=== PATIENT | male | born 1935 ===

== ENCOUNTER 2018-07-04 09:56 | Inpatient (IN) | payer MEDICARE, OTHER | END 2018-07-07 16:20 | disposition home or self-care (01) | LOC: C.9I 07-05 02:56 → C.ER 09:56 → C.9E 12:00 → C.3T 15:05 → C.9E 15:45 ==

== ENCOUNTER 2018-08-31 14:48 | Inpatient (IN) | payer MEDICARE, OTHER ==
[2018-08-31 14:48] VITALS: BMI 29.8
[2018-08-31 16:55] LABS: EOS % 3.3 % (0.0-4.0); LYMPH # 0.2 K/uL (1.0-4.3); LYMPH % 69.6 % (20.0-40.0); MEAN CELL VOLUME 96.4 fL (80.0-94.0); MEAN CORPUSCULAR HEMOGLOBIN 31.5 pg (27.0-31.0); MEAN CORPUSCULAR HGB CONC 32.7 g/dL (33.0-37.0); MEAN PLATELET VOLUME 9.4 fL (7.2-11.7); MONO % 5.4 % (0.0-10.0); NEUT # 0.1 K/uL (1.8-7.0); NEUT % 21.7 % (50.0-75.0); NRBC % 3.5 % (0.0-2.0); RBC 1.77 Mil/uL (4.40-5.90)
--- NOTE | 2018-08-31 16:56 | RAD ---
Date of service: 08/31/2018 PROCEDURE: CHEST RADIOGRAPH, 1 VIEW HISTORY: SOB COMPARISON: Is made with 07/05/2018 FINDINGS: LUNGS: No evidence of new infiltrate or consolidation in the lungs. Prominent reticular opacities at the lower lobes are again noted. PLEURA: No pneumothorax or pleural fluid seen. CARDIOVASCULAR: No aortic atherosclerotic calcification present. Normal. OSSEOUS STRUCTURES: No significant abnormalities. VISUALIZED UPPER ABDOMEN: Normal. OTHER FINDINGS: Right-sided Infusaport is again seen in place. IMPRESSION: No significant interval changes.
[2018-08-31 16:57] LABS: INR 1.2; PROTHROMBIN TIME 13.2 SECONDS (9.7-12.2)
[2018-08-31 16:58] LABS: ALB/GLOB RATIO 1.1 (1.0-2.1); ALBUMIN 3.4 g/dL (3.5-5.0); AST/SGOT 23 U/L (17-59); BLOOD UREA NITROGEN 24 mg/dL (9-20); CALCIUM 8.7 mg/dl (8.6-10.4); GFR NON-AFRICAN AMERICAN 58
[2018-08-31 16:59] LABS: ALT/SGPT < 6 U/L (21-72)
[2018-08-31 17:00] LABS: WHITE BLOOD COUNT 0.3 K/uL (4.8-10.8)
[2018-08-31 17:01] LABS: HEMOGLOBIN 5.6 g/dL (12.0-18.0)
--- NOTE | 2018-08-31 17:37 | C.PDOC ---
History Of Present Illness 82-year-old male with past medical history of HTN, DM2, CAD, and myelodysplastic pancytopenia(dx 2.5yrs ago) who presents to the ED at the request of Dr. Moreau due to Hb6. Pt had transfusion in past. At present time, pt denies any active physical complaints. Patient denies chest pain, SOB, palpitations, dizziness, headaches, n/v, diarrhea, leg swelling, abdominal pain, dysuria. PMD: Dr. Moreau, Heme/Onc: Dr. Bridges, Cardio: Dr. Simmons PMH: HTN, DM2, CAD, myelodysplastic pancytopenia PSurgH: stents x2 2012, appendectomy Medications: Jardiance 10 mg qd, amlodipine 5 mg qd, isosorbide mononitrate ER 60 mg qd, losartan potassium 100 mg qd, atorvastatin 20 mg qhs, oxybutinin ER 15 mg qhs, finasteride 5 mg qhs, Humulin 70/30 28 unit & 24 unit, temazepam 15 mg qhs Allergies: NKDA Time Seen by Provider: 08/31/18 15:32 Chief Complaint (Nursing): Abnormal Labs History Per: Patient Past Medical History Reviewed: Historical Data, Nursing Documentation, Vital Signs Vital Signs: Last Vital Signs Temp 98 F 08/31/18 14:57 Pulse 84 08/31/18 14:57 Resp 20 08/31/18 14:57 BP 122/59 L 08/31/18 14:57 Pulse Ox 99 08/31/18 14:57 - Medical History PMH: Anemia, CAD, Diabetes, HTN Denies: Chronic Kidney Disease Surgical History: Appendectomy (1989), Coronary Stent (2010) - [facility] Procedures INSERT VAD RESERVOIR IN CHEST SUBCU/FASCIA, PERC (07/04/18) INSERTION OF INFUSION DEV INTO SUP VENA CAVA, PERC APPROACH (07/04/18) LEFT HEART CARDIAC CATH (04/16/13) LT HEART ANGIOCARDIOGRAM (04/16/13) TRANSFUSE NONAUT PLATELETS IN PERIPH VEIN, PERC (07/04/18) Family History: States: No Known Family Hx - Social History Hx Tobacco Use: No Hx Alcohol Use: No Hx Substance Use: No - Immunization History Hx Tetanus Toxoid Vaccination: No Hx Influenza Vaccination: Yes (2018) Hx Pneumococcal Vaccination: Yes (3 years ago) Review Of Systems Except As Marked, All Systems Reviewed And Found Negative. Constitutional: Negative for: Fever Cardiovascular: Negative for: Chest Pain, Palpitations, Edema, Light Headedness Respiratory: Negative for: Cough, Shortness of Breath, Wheezing Gastrointestinal: Negative for: Nausea, Vomiting, Abdominal Pain, Diarrhea, Melena, Hematochezia, Hematemesis Genitourinary: Negative for: Hematuria Musculoskeletal: Negative for: Neck Pain, Back Pain Skin: Negative for: Rash Neurological: Negative for: Weakness, Numbness, Altered Mental Status Physical Exam - Physical Exam Appears: Well, Non-toxic, No Acute Distress Skin: Normal Color, Warm, Dry, No Rash Head: Normacephalic Eye(s): bilateral: PERRL Neck: Trachea Midline, Supple Cardiovascular: Rhythm Regular, No Murmur, No JVD Respiratory: No Decreased Breath Sounds, No Accessory Muscle Use, No Stridor, No Wheezing Gastrointestinal/Abdominal: Soft, No Tenderness, No Distention, No Guarding Back: No CVA Tenderness Extremity: Normal ROM, No Pedal Edema, No Deformity Neurological/Psych: Oriented x3, Normal Speech ED Course And Treatment - Laboratory Results Result Diagrams: 08/31/18 16:43 08/31/18 16:43 Lab Results: PT 13.2 SECONDS (9.7-12.2) H 08/31/18 16:43 INR 1.2 08/31/18 16:43 APTT 32 SECONDS (21-34) 08/31/18 16:43 Total Bilirubin 0.7 mg/dL (0.2-1.3) 08/31/18 16:43 AST 23 U/L (17-59) 08/31/18 16:43 ALT < 6 U/L (21-72) L D 08/31/18 16:43 Alkaline Phosphatase 55 U/L (38-126) 08/31/18 16:43 Total Protein 6.6 g/dL (6.3-8.3) 08/31/18 16:43 Albumin 3.4 g/dL (3.5-5.0) L 08/31/18 16:43 Globulin 3.1 gm/dL (2.2-3.9) 08/31/18 16:43 Albumin/Globulin Ratio 1.1 (1.0-2.1) 08/31/18 16:43 Lab Interpretation: Abnormal ECG: Interpreted By Me, Viewed By Me ECG Interpretation: Abnormal Interpretation Of ECG: 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 Compare to old one from 07/04/18: SInus josep@59/min, RBBB O2 Sat by Pulse Oximetry: 99 Pulse Ox Interpretation: Normal - Other Rad CXR X-Ray: Read By Radiologist Interpretation: 08/31/2018. PROCEDURE: CHEST RADIOGRAPH, 1 VIEW. HISTORY: SOB. COMPARISON: Is made with 07/05/2018. FINDINGS: LUNGS: No evidence of new infiltrate or consolidation in the lungs. Prominent reticular opacities at the lower lobes are again noted. PLEURA: No pneumothorax or pleural fluid seen. CARDIOVASCULAR: No aortic atherosclerotic calcification present. Normal. OSSEOUS STRUCTURES: No significant abnormalities. VISUALIZED UPPER ABDOMEN: Normal. OTHER FINDINGS: Right-sided Infusaport is again seen in place. IMPRESSION: No significant interval changes. Progress Note: case discussed with , EKG review. Admission to tele recommend. Request transfusion with PRBCs now Disposition - Disposition Disposition: HOSPITALIZED Disposition Time: 17:56 Condition: STABLE - Clinical Impression Clinical Impression: Pancytopenia, Abnormal electrocardiogram
[2018-08-31] MEDS ORDERED: Dextrose 50% SYRINGE Inj (50 ml) IV PRN (20:21)
[2018-08-31] MEDS ORDERED: Glucagon Recombinant 1 mg Inj IM PRN (20:21)
--- NOTE | 2018-08-31 20:30 | CP.PCM.HP ---
History of Present Illness - History of Present Illness History of Present Illness: CC: anemia Patient is an 82-year-old male with past medical history of HTN, DM2, CAD, and myelodysplastic syndrome (dx 2.5yrs ago) with associated pancytopenia who presents to the ED as requested by PMD Dr. Moreau for anemia with reported hgb of 6. Patient reports he is being treated by Dr. Bridges for myelodysplastic syndrome. Patient is currently asymptomatic. Patient denies chest pain, SOB, palpitations, dizziness, headaches, n/v, diarrhea, leg swelling, abdominal pain, dysuria. PMD: Dr. Moreau, Heme/Onc: Dr. Bridges, Cardio: Dr. Simmons PMHx: HTN, DM2, CAD, myelodysplastic syndrome PSHx: stents x2 2012, appendectomy Meds: Jardiance 10 mg qd, amlodipine 5 mg qd, isosorbide mononitrate ER 60 mg qd, losartan potassium 100 mg qd, atorvastatin 20 mg qhs, oxybutinin ER 15 mg qhs, finasteride 5 mg qhs, Humulin 70/30 28 unit & 24 units, temazepam 15 mg qhs Allergies: NKDA FamHx: uterine ca SocHx: denies alcohol/drug use, former smoker quit 27 years ago Present on Admission - Present on Admission Any Indicators Present on Admission: No Review of Systems - Constitutional Constitutional: absent: Fatigue, Fever, Lethargy - EENT Eyes: absent: Blurred Vision - Cardiovascular Cardiovascular: absent: Chest Pain, Dyspnea, Lightheadedness, Palpitations - Respiratory Respiratory: absent: Cough - Gastrointestinal Gastrointestinal: absent: Diarrhea, Nausea - Genitourinary Genitourinary: absent: Difficulty Urinating - Neurological Neurological: absent: Dizziness, Headaches, Syncope, Weakness Past Patient History - Past Medical History & Family History Past Medical History?: Yes - Past Social History Smoking Status: Former Smoker - CARDIAC Hx Hypertension: Yes - PULMONARY Hx Respiratory Disorders: No - NEUROLOGICAL Hx Neurological Disorder: No - HEENT Hx HEENT Problems: No - RENAL Hx Chronic Kidney Disease: No - ENDOCRINE/METABOLIC Hx Endocrine Disorders: Yes Hx Diabetes Mellitus Type 1: Yes - HEMATOLOGICAL/ONCOLOGICAL Hx Anemia: Yes - INTEGUMENTARY Hx Dermatological Problems: No - MUSCULOSKELETAL/RHEUMATOLOGICAL Hx Falls: No - GASTROINTESTINAL Hx Gastrointestinal Disorders: No - GENITOURINARY/GYNECOLOGICAL Hx Genitourinary Disorders: No - PSYCHIATRIC Hx Substance Use: No - SURGICAL HISTORY Hx Appendectomy: Yes (1989) Hx Coronary Stent: Yes (2010) - ANESTHESIA Hx Anesthesia: Yes Hx Anesthesia Reactions: No Hx Malignant Hyperthermia: No Meds Allergies/Adverse Reactions: Allergies Allergy/AdvReac Type Severity Reaction Status Date / Time No Known Allergies Allergy Verified 08/31/18 15:00 Physical Exam - Constitutional Appears: Non-toxic, No Acute Distress - Head Exam Head Exam: ATRAUMATIC, NORMAL INSPECTION, NORMOCEPHALIC - Eye Exam Eye Exam: EOMI, Normal appearance - ENT Exam ENT Exam: Mucous Membranes Moist, Normal Exam - Neck Exam Neck exam: Negative for: Normal Inspection Additional comments: right chest port - Respiratory Exam Respiratory Exam: Clear to Auscultation Bilateral, NORMAL BREATHING PATTERN. absent: Respiratory Distress - Cardiovascular Exam Cardiovascular Exam: REGULAR RHYTHM. absent: Tachycardia - GI/Abdominal Exam GI & Abdominal Exam: Soft. absent: Distended, Tenderness - Extremities Exam Extremities exam: Positive for: normal inspection. Negative for: calf tenderness, pedal edema - Neurological Exam Neurological exam: Alert, Oriented x3 - Psychiatric Exam Psychiatric exam: Normal Affect, Normal Mood - Skin Skin Exam: Dry, Intact, Pallor, Warm Additional comments: dark fingernail discoloration Results - Vital Signs Recent Vital Signs: Last Vital Signs Temp 98.0 F 08/31/18 20:03 Pulse 76 08/31/18 20:03 Resp 20 08/31/18 18:45 BP 125/49 L 08/31/18 20:03 Pulse Ox 95 08/31/18 19:48 - Labs Result Diagrams: 08/31/18 16:43 08/31/18 16:43 Labs: Laboratory Results - last 24 hr 08/31/18 08/31/18 08/31/18 16:43 16:43 16:43 WBC 0.3 L* RBC 1.77 L Hgb 5.6 L* D Hct 17.1 L MCV 96.4 H D MCH 31.5 H MCHC 32.7 L RDW 24.0 H Plt Count 20 L* D MPV 9.4 Neut % (Auto) 21.7 L Lymph % (Auto) 69.6 H Ellis % (Auto) 5.4 Eos % (Auto) 3.3 Baso % (Auto) 0.0 Neut # (Auto) 0.1 L Lymph # (Auto) 0.2 L Ellis # (Auto) 0.0 Eos # (Auto) 0.0 Baso # (Auto) 0.0 PT 13.2 H INR 1.2 APTT 32 Sodium 135 Potassium 4.4 Chloride 101 Carbon Dioxide 25 Anion Gap 13 BUN 24 H Creatinine 1.2 Est GFR ( Amer) > 60 Est GFR (Non-Af Amer) 58 Random Glucose 233 H D Calcium 8.7 Total Bilirubin 0.7 AST 23 ALT < 6 L D Alkaline Phosphatase 55 CK-MB (Mass) 0.30 Troponin I < 0.0120 Total Protein 6.6 Albumin 3.4 L Globulin 3.1 Albumin/Globulin Ratio 1.1 Blood Type Antibody Screen 08/31/18 16:43 WBC RBC Hgb Hct MCV MCH MCHC RDW Plt Count MPV Neut % (Auto) Lymph % (Auto) Ellis % (Auto) Eos % (Auto) Baso % (Auto) Neut # (Auto) Lymph # (Auto) Ellis # (Auto) Eos # (Auto) Baso # (Auto) PT INR APTT Sodium Potassium Chloride Carbon Dioxide Anion Gap BUN Creatinine Est GFR ( Amer) Est GFR (Non-Af Amer) Random Glucose Calcium Total Bilirubin AST ALT Alkaline Phosphatase CK-MB (Mass) Troponin I Total Protein Albumin Globulin Albumin/Globulin Ratio Blood Type AB POSITIVE Antibody Screen Negative Assessment & Plan (1) Pancytopenia Assessment and Plan: pancytopenia 2/2 myelodysplastic syndrome hx of transfusions Hgb 5.6 on admission transfuse 3U PRBC lasix 20mg ivp x1 s/p transfusions neutropenic precautions (WBC 0.3) contraindication for pharm anticoagulation f/u am labs Pt follows w/ Dr. Bridges outpatient Status: Acute (2) HTN (hypertension) Assessment and Plan: continue home meds, norvasc 5mg, cozaar 100mg Status: Chronic (3) DM2 (diabetes mellitus, type 2) Assessment and Plan: hold home Jardiance continue home insulin 70/30, 24 and 28 accuchecks ACHS hypoglycemia protocol Status: Chronic (4) CAD (coronary artery disease) Assessment and Plan: Stent 2010 continue statin, replace lipitor 20 with crestor 10mg po hs ASA contraindicated 2/2 pancytopenia Status: Chronic (5) Urinary retention Assessment and Plan: continue home meds, oxybutinin, proscar Status: Chronic - Assessment and Plan (Free Text) Assessment: Ppx: VTE: pharm AC contraindicated, SCDs GI: not indicated Discussed with Dr. Lizzeth Carlin, PGY-1
[2018-08-31] MEDS ORDERED: Home Med 1 UNIT (Atorvastatin [Lipitor] 20 MG) PO SCH (22:00)
[2018-08-31 22:48] VITALS: RESP 20
[2018-09-01] MEDS ORDERED: (Novolin 70/30) NPH/Regular 70/30 Units/ml 10 ml vial SC SCH ×2 (07:30→17:00)
[2018-09-01] MEDS ORDERED: Oxybutynin XL 15 mg Tab PO SCH (10:00)
[2018-09-01] MEDS ORDERED: Home Med 1 UNIT (Empagliflozin [Jardiance] 10 MG) PO SCH (10:00)
[2018-09-01 11:44] LABS: HEMOGLOBIN 9.2 g/dL (12.0-18.0)
[2018-09-01 11:53] LABS: MEAN CELL VOLUME 94.7 fL (80.0-94.0); MEAN CORPUSCULAR HEMOGLOBIN 31.5 pg (27.0-31.0); MEAN CORPUSCULAR HGB CONC 33.2 g/dL (33.0-37.0); MEAN PLATELET VOLUME 8.4 fL (7.2-11.7); RBC 2.92 Mil/uL (4.40-5.90); RED CELL DISTRIBUTION WIDTH 19.9 % (11.5-14.5)
[2018-09-01 11:58] LABS: WHITE BLOOD COUNT 0.4 K/uL (4.8-10.8)
[2018-09-01 12:05] LABS: ALB/GLOB RATIO 1.1 (1.0-2.1); ALBUMIN 3.7 g/dL (3.5-5.0); ALT/SGPT 11 U/L (21-72); AST/SGOT 25 U/L (17-59); BLOOD UREA NITROGEN 24 mg/dL (9-20); GFR NON-AFRICAN AMERICAN > 60
--- NOTE | 2018-09-01 12:20 | CP.PCM.DIS ---
Provider - Provider Date of Admission: 08/31/18 17:56 Attending physician: Oniel Lora Jr, MD Time Spent in preparation of Discharge (in minutes): 55 Hospital Course - Lab Results Lab Results: Most Recent Lab Values WBC 0.4 K/uL (4.8-10.8) L* 09/01/18 11:30 RBC 2.92 Mil/uL (4.40-5.90) L 09/01/18 11:30 Hgb 9.2 g/dL (12.0-18.0) L D 09/01/18 11:30 Hct 27.6 % (35.0-51.0) L 09/01/18 11:30 MCV 94.7 fL (80.0-94.0) H 09/01/18 11:30 MCH 31.5 pg (27.0-31.0) H 09/01/18 11:30 MCHC 33.2 g/dL (33.0-37.0) 09/01/18 11:30 RDW 19.9 % (11.5-14.5) H 09/01/18 11:30 Plt Count 14 K/uL (130-400) L* D 09/01/18 11:30 MPV 8.4 fL (7.2-11.7) 09/01/18 11:30 Neut % (Auto) 21.7 % (50.0-75.0) L 08/31/18 16:43 Lymph % (Auto) 69.6 % (20.0-40.0) H 08/31/18 16:43 [place] % (Auto) 5.4 % (0.0-10.0) 08/31/18 16:43 Eos % (Auto) 3.3 % (0.0-4.0) 08/31/18 16:43 Baso % (Auto) 0.0 % (0.0-2.0) 08/31/18 16:43 Neut # (Auto) 0.1 K/uL (1.8-7.0) L 08/31/18 16:43 Lymph # (Auto) 0.2 K/uL (1.0-4.3) L 08/31/18 16:43 [place] # (Auto) 0.0 K/uL (0.0-0.8) 08/31/18 16:43 Eos # (Auto) 0.0 K/uL (0.0-0.7) 08/31/18 16:43 Baso # (Auto) 0.0 K/uL (0.0-0.2) 08/31/18 16:43 PT 13.2 SECONDS (9.7-12.2) H 08/31/18 16:43 INR 1.2 08/31/18 16:43 APTT 32 SECONDS (21-34) 08/31/18 16:43 Sodium 134 mmol/L (132-148) 09/01/18 11:30 Potassium 4.6 mmol/L (3.6-5.2) 09/01/18 11:30 Chloride 100 mmol/L (98-107) 09/01/18 11:30 Carbon Dioxide 27 mmol/L (22-30) 09/01/18 11:30 Anion Gap 12 (10-20) 09/01/18 11:30 BUN 24 mg/dL (9-20) H 09/01/18 11:30 Creatinine 1.0 mg/dL (0.8-1.5) 09/01/18 11:30 Est GFR ( Amer) > 60 09/01/18 11:30 Est GFR (Non-Af Amer) > 60 09/01/18 11:30 POC Glucose (mg/dL) 159 mg/dL (65-110) H 08/31/18 22:01 Random Glucose 206 mg/dL (75-110) H 09/01/18 11:30 Calcium 9.0 mg/dl (8.6-10.4) 09/01/18 11:30 Total Bilirubin 1.1 mg/dL (0.2-1.3) 09/01/18 11:30 AST 25 U/L (17-59) 09/01/18 11:30 ALT 11 U/L (21-72) L D 09/01/18 11:30 Alkaline Phosphatase 51 U/L (38-126) 09/01/18 11:30 CK-MB (Mass) 0.30 ng/mL (0.0-3.38) 08/31/18 16:43 Troponin I < 0.0120 ng/mL (0.00-0.120) 08/31/18 16:43 Total Protein 7.0 g/dL (6.3-8.3) 09/01/18 11:30 Albumin 3.7 g/dL (3.5-5.0) 09/01/18 11:30 Globulin 3.3 gm/dL (2.2-3.9) 09/01/18 11:30 Albumin/Globulin Ratio 1.1 (1.0-2.1) 09/01/18 11:30 Blood Type AB POSITIVE 08/31/18 16:43 Antibody Screen Negative 08/31/18 16:43 - Hospital Course Hospital Course: Upon Admission: Patient is an 82-year-old male with past medical history of HTN, DM2, CAD, and myelodysplastic syndrome (dx 2.5yrs ago) with associated pancytopenia who presents to the ED as requested by PMD Dr. Lora for anemia with reported hgb of 6. Patient reports he is being treated by Dr. Bridges for myelodysplastic syndrome. Patient is currently asymptomatic. Patient denies chest pain, SOB, palpitations, dizziness, headaches, n/v, diarrhea, leg swelling, abdominal pain, dysuria. PMD: Dr. Lora, Heme/Onc: Dr. Bridges, Cardio: Dr. Simmons PMHx: HTN, DM2, CAD, myelodysplastic syndrome PSHx: stents x2 2012, appendectomy Meds: Jardiance 10 mg qd, amlodipine 5 mg qd, isosorbide mononitrate ER 60 mg qd, losartan potassium 100 mg qd, atorvastatin 20 mg qhs, oxybutinin ER 15 mg qhs, finasteride 5 mg qhs, Humulin 70/30 28 unit & 24 units, temazepam 15 mg qhs Allergies: NKDA FamHx: uterine ca SocHx: denies alcohol/drug use, former smoker quit 27 years ago Throughout Hospital Course: (1) Pancytopenia pancytopenia 2/2 myelodysplastic syndrome hx of transfusions Hgb 5.6 on admission transfuse 3U PRBC lasix 20mg ivp x1 s/p transfusions neutropenic precautions (WBC 0.3) contraindication for pharm anticoagulation Pt follows w/ Dr. Bridges outpatient (2) HTN (hypertension) continue home meds, norvasc 5mg, cozaar 100mg (3) DM2 (diabetes mellitus, type 2) hold home Jardiance continue home insulin 70/30, 24 and 28 accuchecks ACHS hypoglycemia protocol (4) CAD (coronary artery disease) Stent 2010 continue statin, replace lipitor 20 with crestor 10mg po hs ASA contraindicated 2/2 pancytopenia (5) Urinary retention continue home meds, oxybutinin, proscar Patient transfused 3 units PRBCs, patient is stable. He is to follow up with Dr. Lora and Dr. Bridges. Please review EMR for full record. Discharge Exam - Head Exam Head Exam: ATRAUMATIC, NORMAL INSPECTION, NORMOCEPHALIC - Eye Exam Eye Exam: EOMI, Normal appearance, PERRL Pupil Exam: NORMAL ACCOMODATION - ENT Exam ENT Exam: Mucous Membranes Moist - Respiratory Exam Respiratory Exam: Clear to PA & Lateral, NORMAL BREATHING PATTERN. absent: Decreased Breath Sounds, Rales, Rhonchi, Wheezes - Cardiovascular Exam Cardiovascular Exam: REGULAR RHYTHM, +S1, +S2 - GI/Abdominal Exam GI & Abdominal Exam: Normal Bowel Sounds, Soft. absent: Distended, Tenderness - Neurological Exam Neurological exam: Alert, CN II-XII Intact, Oriented x3 - Psychiatric Exam Psychiatric exam: Normal Affect, Normal Mood - Skin Skin Exam: Dry, Intact, Normal Color, Warm Discharge Plan - Follow Up Plan Condition: STABLE Disposition: HOME/ ROUTINE Instructions: Myelodysplastic Syndromes (MDS) Additional Instructions: Patient is to follow up with Dr. Lora within 1 week. Patient is to follow up with Dr. Redding as scheduled. Please continue your medications as prescribed. Please take care and be well. -- El paciente es el seguimiento con el Dr. lora dentro de 1 semana. El paciente es el seguimiento con el Dr. Redding segn lo programado. Por favor, contine con aishwarya medicamentos segn lo prescrito. Por favor, cudate y cudate. Referrals: Oniel Lora Jr., MD [Medical Doctor] -
[2018-09-01 13:16] LABS: EOS % 2.4 % (0.0-4.0); LYMPH % 81.6 % (20.0-40.0); MONO % 3.9 % (0.0-10.0); NEUT % 12.1 % (50.0-75.0); NRBC % 4.5 % (0.0-2.0)
[2018-09-01 13:17] LABS: LYMPH # 0.3 K/uL (1.0-4.3)
[2018-09-01 16:10] VITALS: BP 97/47; PULSE 75; TEMP 98.2; O2SAT 95
== END 2018-09-01 18:00 | disposition home or self-care (01) | DRG 810 ==
LOC: C.ER 14:48 → C.9E 17:56 → C.6T 18:51 → C.9E 19:51 → C.6T 21:29
PROVIDERS: ADMIT Internal Medicine; ATTEND Internal Medicine
PROC: 30233N1 Transfusion of Nonautologous Red Blood Cells into Peripheral Vein, Percutaneous Approach (ICD-10-PCS; principal; 2018-08-31)
DX: D61.818 Other pancytopenia (principal); D46.9 Myelodysplastic syndrome, unspecified; I10 Essential (primary) hypertension; E11.9 Type 2 diabetes mellitus without complications; I25.10 Atherosclerotic heart disease of native coronary artery without angina pectoris; R33.9 Retention of urine, unspecified; Z95.5 Presence of coronary angioplasty implant and graft; Z87.891 Personal history of nicotine dependence; Z79.4 Long term (current) use of insulin

== ENCOUNTER 2018-10-03 10:11 | Inpatient (IN) | payer MEDICARE, OTHER ==
[2018-10-03 10:11] VITALS: BMI 29.8
--- NOTE | 2018-10-03 10:58 | C.PDOC ---
History Of Present Illness 82-year-old male, whose past medical history includes MDS requiring recurrent transfusions, presents to the ED for evaluation of generalized weakness and skin pallor. Patient's friends came to visit him today and found he appeared very pale and had a low blood pressure. 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 He denies fever, chills, vomiting at this time. Time Seen by Provider: 10/03/18 10:28 Chief Complaint (Nursing): Abnormal Labs History Per: Patient, Other (friends) History/Exam Limitations: no limitations Onset/Duration Of Symptoms: Unknown Current Symptoms Are (Timing): Still Present Additional History Per: Patient Past Medical History Reviewed: Historical Data, Nursing Documentation, Vital Signs Vital Signs: Last Vital Signs Temp 98.5 F 10/03/18 10:28 Pulse 109 H 10/03/18 10:28 Resp 18 10/03/18 10:28 BP 102/61 10/03/18 10:28 Pulse Ox 99 10/03/18 10:28 - Medical History PMH: Anemia, CAD, Diabetes, HTN Denies: Chronic Kidney Disease Surgical History: Appendectomy (1989), Coronary Stent (2010) - [facility] Procedures INSERT VAD RESERVOIR IN CHEST SUBCU/FASCIA, PERC (07/04/18) INSERTION OF INFUSION DEV INTO SUP VENA CAVA, PERC APPROACH (07/04/18) LEFT HEART CARDIAC CATH (04/16/13) LT HEART ANGIOCARDIOGRAM (04/16/13) TRANSFUSE NONAUT PLATELETS IN PERIPH VEIN, PERC (07/04/18) TRANSFUSE NONAUT RED BLOOD CELLS IN PERIPH VEIN, PERC (08/31/18) Family History: States: Unknown Family Hx - Social History Hx Tobacco Use: No Hx Alcohol Use: No Hx Substance Use: No - Immunization History Hx Tetanus Toxoid Vaccination: No Hx Influenza Vaccination: Yes (2018) Hx Pneumococcal Vaccination: Yes (3 years ago) Review Of Systems Except As Marked, All Systems Reviewed And Found Negative. Constitutional: Negative for: Fever Gastrointestinal: Negative for: Vomiting Physical Exam - Physical Exam Additional Physical Exam Comments: Constitutional: No acute distress. Head: Normocephalic. Atraumatic. Eyes: PERRL. Pale conjunctiva. ENT: Moist mucous membranes. Neck: Supple. Cardiovascular: Regular rate. Radial pulse 2+ bilaterally. Chest: Port to right chest wall. No tenderness. Respiratory: Clear to auscultation bilaterally. GI: Soft. Nontender. Nondistended. Back: No CVA tenderness. Musculoskeletal: No tenderness or swelling of extremities. Skin: Pale. No Rash. Neurologic: Alert, no focal deficit. ED Course And Treatment - Laboratory Results Result Diagrams: 10/03/18 11:20 10/03/18 11:20 O2 Sat by Pulse Oximetry: 99 (on RA) Pulse Ox Interpretation: Normal Medical Decision Making Medical Decision Making: Progress: Bloodwork, CXR, and EKG ordered and reviewed. EKG: Normal Sinus Rhythm at rate 97bpm. Right bundle branch block. No ST elevations. CXR Impression: No active pulmonary disease. Disposition Discussed With DrVictoria: Oniel Moreau Jr. Doctor Will See Patient In The: Hospital - Disposition Disposition: HOSPITALIZED Disposition Time: 11:20 Condition: GUARDED - Clinical Impression Clinical Impression: Myelodysplasia (myelodysplastic syndrome), Symptomatic anemia - Scribe Statement The provider has reviewed the documentation as recorded by the Scribe (Mine Henriquez) Provider Attestation: All medical record entries made by the Scribe were at my direction and personally dictated by me. I have reviewed the chart and agree that the record accurately reflects my personal performance of the history, physical exam, medical decision making, and the department course for this patient. I have also personally directed, reviewed, and agree with the discharge instructions and dis position.
[2018-10-03 11:27] LABS: HEMOGLOBIN 6.6 g/dL (12.0-18.0); MEAN CORPUSCULAR HGB CONC 33.3 g/dL (33.0-37.0); MONO # 0.1 K/uL (0.0-0.8)
[2018-10-03 11:34] LABS: INR 1.4; PROTHROMBIN TIME 15.4 SECONDS (9.7-12.2)
[2018-10-03 11:35] LABS: LYMPH # 0.3 K/uL (1.0-4.3); LYMPH % 46.8 % (20.0-40.0); MEAN CELL VOLUME 95.4 fL (80.0-94.0); MEAN CORPUSCULAR HEMOGLOBIN 31.8 pg (27.0-31.0); MEAN PLATELET VOLUME 10.3 fL (7.2-11.7); MONO % 16.5 % (0.0-10.0); NEUT # 0.3 K/uL (1.8-7.0); NEUT % 35.7 % (50.0-75.0); NRBC % 3.1 % (0.0-2.0); RBC 2.09 Mil/uL (4.40-5.90); RED CELL DISTRIBUTION WIDTH 19.5 % (11.5-14.5)
[2018-10-03 11:49] LABS: ALB/GLOB RATIO 1.1 (1.0-2.1); ALBUMIN 3.9 g/dL (3.5-5.0); CALCIUM 9.2 mg/dl (8.6-10.4)
--- NOTE | 2018-10-03 11:56 | RAD ---
Date of service: 10/03/2018 HISTORY: Generalized weakness COMPARISON: 08/31/2018. FINDINGS: Right-sided Port-A-Cath terminates in the SVC. LUNGS: The lungs are well inflated and clear. PLEURA: No pleural effusions or pneumothorax. CARDIOVASCULAR: The heart is normal in size. No aortic atherosclerotic calcifications present. OSSEOUS STRUCTURES: Within normal limits for the patient's age. VISUALIZED UPPER ABDOMEN: Normal. OTHER FINDINGS: None. IMPRESSION: No active pulmonary disease.
--- NOTE | 2018-10-03 13:35 | CP.PCM.HP ---
History of Present Illness - History of Present Illness History of Present Illness: H&P for Dr. Moreau 82 M w/ PMHx of HTN, DM2, CAD, and myelodysplastic syndrome (dx 2.5yrs ago) present to ED per primary request. Patient states he was told his blood levels were low. Patient reports having 1x episode of feeling fatigue 1 day ago. Denied fevers, chills, just exhaustion. Today patient reports feeling normal, denies headache, vision changes, fevers, chills, nausea, vomiting, chest pain, sob, cough, abdominal pain, constipation, diarrhea. Patient denies recent illness/travel history. PMD: Lizzeth Heme/onc: Cyrus PMHx: HTN, DM2, CAD, myelodysplastic syndrome PSHx: stents x2 2012, appendectomy Meds: Jardiance 10 mg qd, amlodipine 5 mg qd, isosorbide mononitrate ER 60 mg qd, losartan potassium 100 mg qd, atorvastatin 20 mg qhs, oxybutinin ER 15 mg qhs, finasteride 5 mg qhs, Humulin 70/30 28 unit & 24 units, temazepam 15 mg qhs Allergies: NKDA FamHx: uterine ca SocHx: denies alcohol/drug use, former smoker quit 27 years ago Present on Admission - Present on Admission Any Indicators Present on Admission: No History of DVT/PE: No History of Uncontrolled Diabetes: No Urinary Catheter: No Decubitus Ulcer Present: No Review of Systems - Constitutional Constitutional: absent: Chills, Headache - EENT Eyes: absent: Blurred Vision, Change in Vision Nose/Mouth/Throat: absent: Nasal Congestion, Nose Pain - Cardiovascular Cardiovascular: absent: Chest Pain, Chest Pain at Rest - Respiratory Respiratory: absent: Dyspnea, Hemoptysis - Gastrointestinal Gastrointestinal: absent: Abdominal Pain - Genitourinary Genitourinary: absent: Change in Urinary Stream, Difficulty Urinating - Musculoskeletal Musculoskeletal: absent: Atrophy, Back Pain - Integumentary Integumentary: absent: Bleeding Lesions, Change in Pigmentation Additional comments: multiple places of ecchymosis - Neurological Neurological: absent: Abnormal Hearing, Abnormal Movements - Psychiatric Psychiatric: absent: Confusion, Depression - Hematologic/Lymphatic Hematologic: absent: Easy Bleeding, Easy Bruising Past Patient History - Past Medical History & Family History Past Medical History?: Yes - Past Social History Smoking Status: Former Smoker - CARDIAC Hx Hypertension: Yes - PULMONARY Hx Respiratory Disorders: No - NEUROLOGICAL Hx Neurological Disorder: No - HEENT Hx HEENT Problems: No - RENAL Hx Chronic Kidney Disease: No - ENDOCRINE/METABOLIC Hx Endocrine Disorders: Yes Hx Diabetes Mellitus Type 1: Yes - HEMATOLOGICAL/ONCOLOGICAL Hx Anemia: Yes - INTEGUMENTARY Hx Dermatological Problems: No - MUSCULOSKELETAL/RHEUMATOLOGICAL Hx Musculoskeletal Disorders: No Hx Falls: No - GASTROINTESTINAL Hx Gastrointestinal Disorders: No - GENITOURINARY/GYNECOLOGICAL Hx Genitourinary Disorders: No - PSYCHIATRIC Hx Substance Use: No - SURGICAL HISTORY Hx Appendectomy: Yes (1989) Hx Coronary Stent: Yes (2010) - ANESTHESIA Hx Anesthesia: Yes Hx Anesthesia Reactions: No Hx Malignant Hyperthermia: No Meds Allergies/Adverse Reactions: Allergies Allergy/AdvReac Type Severity Reaction Status Date / Time No Known Allergies Allergy Verified 08/31/18 15:00 Physical Exam - Constitutional Appears: Non-toxic, No Acute Distress - Eye Exam Eye Exam: absent: Normal appearance Additional comments: pale slcera - ENT Exam ENT Exam: Mucous Membranes Moist - Respiratory Exam Respiratory Exam: Clear to Auscultation Bilateral, NORMAL BREATHING PATTERN. absent: Rales, Rhonchi, Wheezes - Cardiovascular Exam Cardiovascular Exam: +S1, +S2. absent: Systolic Murmur - GI/Abdominal Exam GI & Abdominal Exam: Normal Bowel Sounds, Soft. absent: Distended, Firm, Guarding - Extremities Exam Extremities exam: Positive for: full ROM, normal inspection. Negative for: calf tenderness, pedal edema - Back Exam Back exam: absent: CVA tenderness (L), CVA tenderness (R) - Neurological Exam Neurological exam: Alert, Oriented x3 - Psychiatric Exam Psychiatric exam: Normal Affect, Normal Mood - Skin Skin Exam: Dry, Normal Color, Warm Additional comments: multiple areas of ecchymosis Results - Vital Signs Recent Vital Signs: Last Vital Signs Temp 100.3 F H 10/03/18 12:48 Pulse 98 H 10/03/18 12:43 Resp 18 10/03/18 10:28 BP 92/44 L 10/03/18 12:43 Pulse Ox 95 10/03/18 12:43 - Labs Result Diagrams: 10/03/18 11:20 10/03/18 11:20 Labs: Laboratory Results - last 24 hr 10/03/18 10/03/18 10/03/18 11:20 11:20 11:20 WBC 0.7 L* D RBC 2.09 L Hgb 6.6 L D Hct 19.9 L MCV 95.4 H MCH 31.8 H MCHC 33.3 RDW 19.5 H Plt Count 19 L* D MPV 10.3 Neut % (Auto) 35.7 L Lymph % (Auto) 46.8 H Ballard % (Auto) 16.5 H Eos % (Auto) 1.0 Baso % (Auto) 0.0 Neut # (Auto) 0.3 L Lymph # (Auto) 0.3 L Ballard # (Auto) 0.1 Eos # (Auto) 0.0 Baso # (Auto) 0.0 Differential Comment PT 15.4 H INR 1.4 APTT 32 Sodium 132 Potassium 4.5 Chloride 98 Carbon Dioxide 24 Anion Gap 16 BUN 42 H Creatinine 1.7 H Est GFR ( Amer) 47 Est GFR (Non-Af Amer) 39 Random Glucose 177 H Calcium 9.2 Phosphorus 4.2 Magnesium 1.9 Total Bilirubin 1.8 H AST 28 ALT 9 L Alkaline Phosphatase 49 Total Protein 7.6 Albumin 3.9 Globulin 3.7 Albumin/Globulin Ratio 1.1 Blood Type Antibody Screen 10/03/18 11:20 WBC RBC Hgb Hct MCV MCH MCHC RDW Plt Count MPV Neut % (Auto) Lymph % (Auto) Ballard % (Auto) Eos % (Auto) Baso % (Auto) Neut # (Auto) Lymph # (Auto) Ballard # (Auto) Eos # (Auto) Baso # (Auto) Differential Comment PT INR APTT Sodium Potassium Chloride Carbon Dioxide Anion Gap BUN Creatinine Est GFR ( Amer) Est GFR (Non-Af Amer) Random Glucose Calcium Phosphorus Magnesium Total Bilirubin AST ALT Alkaline Phosphatase Total Protein Albumin Globulin Albumin/Globulin Ratio Blood Type AB POSITIVE Antibody Screen Negative Assessment & Plan - Assessment and Plan (Free Text) Assessment: 82 male w/ PMhx of HTN, DM2, CAD, and myelodysplastic syndrome (dx 2.5yrs ago) presents w/ acute anemia Plan: Acute anemia Likely 2/2 due to myelodysplastic syndrome - hgb 6s, WBCs 0.7, plts 19 - baseline hgb 9s, wbcs 0.7s, plts 19s - transfuse 2 X PRBCs - Lasix 20 IVP in between - f/u stool occult - f/u heme/onc consutl Dr. Bridges Acute kidney injury - Cr 1.7 - likely due to dehydration - NS 80 mls/hr Leukopenia - F/u Blood cultures - F/u urine cultures - UA: WBCs 14, few willy - start Rocephin 1gm daily History of hypertension - BP currently 90s - hold home medications cozaar 100 mg daily, isosrbide mononitrate 60 mg daily, amlodipine 5 mg PO daily - NS 80 mls/hr History of hyperlipidemia - c/w home medication atorvastatin 10 mg daily History of diabetes - resume home medication jardiance 10 mg PO daily - insulin human 28 units SC daily - ISS - hypoglyemic protocol - accucheck achs History of BPH - c/w home medication proscar 5 mg daily, oxybutynin XL 15 mg PO daily Ppx - DVT: VTE contraindicated 2/2 to thrombopenia - GI: not indicated
[2018-10-03 14:30] LABS: WHITE BLOOD COUNT 0.7 K/uL (4.8-10.8)
[2018-10-03 14:59] LABS: SQUAMOUS EPITHIAL 1 /hpf (0-5); URINE AMORPHOUS SEDIMENT OCC /ul (<OCC); URINE BACTERIA FEW (<OCC); URINE BILIRUBIN NEGATIVE (NEGATIVE); URINE BLOOD 3+ (NEGATIVE); URINE CLARITY Hazy (Clear); URINE COLOR Yellow (YELLOW); URINE GLUCOSE (UA) 3+ mg/dL (Normal); URINE LEUKOCYTE ESTERASE TRACE Leu/uL (Negative); URINE PROTEIN NEGATIVE (NEGATIVE); URINE UROBILINOGEN NORMAL mg/dL (0.2-1.0)
[2018-10-03] MEDS ORDERED: Dextrose 50% SYRINGE Inj (50 ml) IV PRN (15:45)
[2018-10-03] MEDS ORDERED: Glucagon Recombinant 1 mg Inj IM PRN (15:45)
[2018-10-03] MEDS: (Novolog) Insulin Aspart, Recombinant 100 u/ml 10 ml vial SC SCH ×2 (19:00→22:05)
[2018-10-03] MEDS: Sodium Chloride 0.9% 1,000 ML IV SCH (20:40)
[2018-10-03] MEDS: (Novolog Mix 70/30) Insulin Aspart/Insulin Aspar 100 units/ml SC SCH (22:05)
[2018-10-04] MEDS: Sodium Chloride 0.9% 1,000 ML IV SCH ×3 (02:39→15:21)
[2018-10-04 07:51] LABS: EOS % 0.8 % (0.0-4.0); HEMOGLOBIN 7.6 g/dL (12.0-18.0); LYMPH # 0.3 K/uL (1.0-4.3); LYMPH % 59.1 % (20.0-40.0); MEAN CELL VOLUME 93.9 fL (80.0-94.0); MEAN CORPUSCULAR HGB CONC 34.1 g/dL (33.0-37.0); MEAN PLATELET VOLUME 10.5 fL (7.2-11.7); MONO # 0.1 K/uL (0.0-0.8); MONO % 17.3 % (0.0-10.0); NEUT # 0.1 K/uL (1.8-7.0); NEUT % 22.8 % (50.0-75.0); NRBC % 3.7 % (0.0-2.0); RBC 2.38 Mil/uL (4.40-5.90); RED CELL DISTRIBUTION WIDTH 16.3 % (11.5-14.5)
[2018-10-04] MEDS: (Novolog) Insulin Aspart, Recombinant 100 u/ml 10 ml vial SC SCH ×4 (07:52→22:02)
[2018-10-04 08:03] LABS: ALBUMIN 3.2 g/dL (3.5-5.0); ALT/SGPT 11 U/L (21-72); AST/SGOT 24 U/L (17-59); BLOOD UREA NITROGEN 40 mg/dL (9-20); CALCIUM 8.6 mg/dl (8.6-10.4); GFR NON-AFRICAN AMERICAN 53
[2018-10-04 08:04] LABS: WHITE BLOOD COUNT 0.5 K/uL (4.8-10.8)
--- NOTE | 2018-10-04 09:38 | CP.PCM.PN ---
Subjective - Date & Time of Evaluation Date of Evaluation: 10/04/18 Time of Evaluation: 09:38 - Subjective Subjective: DR ESCOTO SERVICE- IM Patient is an 82 yr old male with past medical history of myelodysplastic syndrome who presented to the ED due to fatigue and at the insistence of his PCP. He was seen at bedside today. He is s/p 3 units of PRBC and has no current complaints or issues overnight. He admits some fatigue, easy bruising, but denies fever, headaches, chest pain, SOB, episodes of bleeding, abdominal pain, hematochezia, hematuria, recent illnesses, donald hematuria, dysuria. Objective - Vital Signs/Intake and Output Vital Signs (last 24 hours): Temp Pulse Resp BP Pulse Ox 98 F 86 20 106/59 L 96 10/04/18 07:33 10/04/18 07:33 10/04/18 07:33 10/04/18 07:33 10/04/18 07:33 Intake and Output: 10/04/18 10/04/18 06:59 18:59 Intake Total 1360 915 Output Total 600 800 Balance 760 115 - Medications Medications: Current Medications Amlodipine Besylate (Norvasc) 5 mg PO DAILY [facility] Dextrose (Dextrose 50% Inj) 0 ml IV STAT PRN; Protocol PRN Reason: Hypoglycemia Protocol Dextrose (Glutose 15) 0 gm PO ONCE PRN; Protocol PRN Reason: Hypoglycemia Protocol Finasteride (Proscar) 5 mg PO DAILY [facility] Glucagon (Glucagen Diagnostic Kit) 0 mg IM STAT PRN; Protocol PRN Reason: Hypoglycemia Protocol Sodium Chloride (Sodium Chloride 0.9%) 1,000 mls @ 80 mls/hr IV .[id number] [facility] Last Admin: 10/04/18 02:39 Dose: Not Given Ceftriaxone Sodium 1 gm/ (Sodium Chloride) 100 mls @ 100 mls/hr IVPB DAILY [facility]; Protocol Last Admin: 10/03/18 20:41 Dose: 100 mls/hr Dextrose (Dextrose 5% In Water 1000 Ml) 1,000 mls @ 0 mls/hr IV .Q0M PRN; Protocol PRN Reason: Hypoglycemia Protocol Insulin Aspart (Novolog Mix 70/30 (70/30 Units/Ml)) 24 units SC HS [facility] Last Admin: 10/03/18 22:05 Dose: 24 units Insulin Aspart (Novolog) 0 unit SC ACHS [facility]; Protocol Last Admin: 10/04/18 07:52 Dose: Not Given Insulin Human Isoph/Insulin Regular (Novolin 70/30 (70/30 Units/Ml) 10 Ml) 28 units SC DAILY [facility] Isosorbide Mononitrate (Imdur) 60 mg PO DAILY [facility] Losartan Potassium (Cozaar) 100 mg PO DAILY [facility] Oxybutynin Chloride (Ditropan Xl) 15 mg PO DAILY [facility] Rosuvastatin Calcium (Crestor) 10 mg PO HS [facility] Last Admin: 10/03/18 22:05 Dose: 10 mg Sitagliptin Phosphate (Januvia) 25 mg PO DAILY [facility] Temazepam (Restoril) 15 mg PO HS [facility] - Labs Labs: 10/04/18 07:27 10/04/18 07:27 PT 15.4 SECONDS (9.7-12.2) H 10/03/18 11:20 INR 1.4 10/03/18 11:20 APTT 32 SECONDS (21-34) 10/03/18 11:20 - Constitutional Appears: Well, No Acute Distress - Head Exam Head Exam: NORMAL INSPECTION - Eye Exam Eye Exam: EOMI, PERRL Additional comments: Conjunctival pallor - ENT Exam ENT Exam: Normal Oropharynx - Neck Exam Neck Exam: Normal Inspection - Respiratory Exam Respiratory Exam: NORMAL BREATHING PATTERN. absent: Accessory Muscle Use, Rhonchi, Wheezes - Cardiovascular Exam Cardiovascular Exam: REGULAR RHYTHM, +S1, +S2. absent: RRR - GI/Abdominal Exam GI & Abdominal Exam: Soft, Normal Bowel Sounds. absent: Distended, Guarding, Tenderness - Back Exam Back Exam: NORMAL INSPECTION - Neurological Exam Neurological Exam: Altered, Awake, CN II-XII Intact, Oriented x3 - Skin Skin Exam: Intact, Pallor, Petechiae Additional comments: Ecchymosis on left forearm Assessment and Plan - Assessment and Plan (Free Text) Assessment: Patient is an 82 yr old male with past medical history of myelodysplastic syndrome with complaint of fatigue Plan: Anemia secondary to Myelodysplastic syndrome -3 units of PRBC's transfused so far -Transfuse blood as needed until HgB > 9 - F/u repeat H&H @ 4pm on 10/04 -Dr. Bridges (Heme/onc) is on board Leukopenia secondary to myelodysplastic syndrome -WBC 0.5k & Neutrophils 22% (10/04)-> ANC<500 -Patient recieving Granix 480mcg SC started 10/03 @ 4pm q24hr for 7 days, dose 06/25 given -Patient to be placed on neutropenic precautions -Follow CBC w/ diff this evening and AM labs 10/05 -F/u blood cultures -Monitor patient for neutropenic fevers -Dr. Bridges (Heme/onc) is on board UTI -U/A-Urine blood +3, RBCs = 15, Urine WBC=14 -UCx: Positve for > 100,000 CFU for gram negative rods, follow for Cx results and TARA -Ceftriaxone 1g IVBP qD Thrombocytopenia secondary to myelodysplastic syndrome -Plate[place] @ [id number] -Transfuse platelets if <10,000 or bleeding episodes occur -Dr. Bridges (Heme/onc) is on board History of CAD -Rosuvastatin 10mg HS Diabetes Mellitus -Januvia 25mg PO qD -NPH Insulin 70/30 28 units SC daily -Insulin Aspart 24 units SC HS BPH -Finasteride 5mg PO -Oxybutynin 15mg PO qD HTN -Blood pressure optimal currently at 106/59, Pulse 86 -Holding amlodipine, ISMN, and Cozzar PPX -Anticoagulation DVT prophylaxis held due to contraindication, SCD -GI PPX protonix 40mg PO due to anemia
[2018-10-04] MEDS ORDERED: Oxybutynin XL 15 mg Tab PO SCH (10:00)
[2018-10-04] MEDS: (Novolin 70/30) NPH/Regular 70/30 Units/ml 10 ml vial SC SCH (10:11)
[2018-10-04 17:03] VITALS: RESP 20
[2018-10-04 19:55] LABS: HEMOGLOBIN 8.5 g/dL (12.0-18.0); LYMPH # 0.4 K/uL (1.0-4.3); LYMPH % 80.8 % (20.0-40.0); MEAN CELL VOLUME 92.1 fL (80.0-94.0); MEAN CORPUSCULAR HEMOGLOBIN 31.6 pg (27.0-31.0); MEAN CORPUSCULAR HGB CONC 34.3 g/dL (33.0-37.0); MEAN PLATELET VOLUME 10.5 fL (7.2-11.7); MONO # 0.1 K/uL (0.0-0.8); MONO % 9.6 % (0.0-10.0); NEUT # 0.1 K/uL (1.8-7.0); NEUT % 9.6 % (50.0-75.0); NRBC % 2.5 % (0.0-2.0); RBC 2.68 Mil/uL (4.40-5.90); RED CELL DISTRIBUTION WIDTH 16.4 % (11.5-14.5)
[2018-10-04 19:57] LABS: WHITE BLOOD COUNT 0.5 K/uL (4.8-10.8)
[2018-10-04] MEDS: (Novolog Mix 70/30) Insulin Aspart/Insulin Aspar 100 units/ml SC SCH (22:02)
--- NOTE | 2018-10-05 00:04 | CARD ---
APPROVED REPORT Date of service: 10/03/2018 EKG Measurement Heart [id number] <Conclusion> Normal sinus rhythm Right bundle branch block Abnormal ECG
[2018-10-05] MEDS: Sodium Chloride 0.9% 1,000 ML IV SCH (04:04)
[2018-10-05 08:28] VITALS: O2SAT 96
[2018-10-05] MEDS: (Novolog) Insulin Aspart, Recombinant 100 u/ml 10 ml vial SC SCH ×3 (08:45→17:20)
[2018-10-05] MEDS: (Novolin 70/30) NPH/Regular 70/30 Units/ml 10 ml vial SC SCH (09:55)
[2018-10-05 11:43] LABS: EOS % 1.9 % (0.0-4.0); HEMOGLOBIN 9.2 g/dL (12.0-18.0); LYMPH # 0.3 K/uL (1.0-4.3); LYMPH % 60.9 % (20.0-40.0); MEAN CELL VOLUME 93.1 fL (80.0-94.0); MEAN CORPUSCULAR HEMOGLOBIN 31.8 pg (27.0-31.0); MEAN CORPUSCULAR HGB CONC 34.1 g/dL (33.0-37.0); MONO % 10.9 % (0.0-10.0); NEUT # 0.1 K/uL (1.8-7.0); NEUT % 26.3 % (50.0-75.0); NRBC % 1.8 % (0.0-2.0); RBC 2.91 Mil/uL (4.40-5.90)
[2018-10-05 12:05] LABS: ALB/GLOB RATIO 0.9 (1.0-2.1); ALT/SGPT 18 U/L (21-72); AST/SGOT 32 U/L (17-59); BLOOD UREA NITROGEN 27 mg/dL (9-20); CALCIUM 8.1 mg/dl (8.6-10.4); GFR NON-AFRICAN AMERICAN > 60
[2018-10-05 12:13] LABS: WHITE BLOOD COUNT 0.4 K/uL (4.8-10.8)
--- NOTE | 2018-10-05 13:55 | CP.PCM.PN ---
Subjective - Date & Time of Evaluation Date of Evaluation: 10/05/18 Time of Evaluation: 13:51 - Subjective Subjective: HOSPITALIST SERVICE Pt s/e at bedside, denies any new complaints overnight, Pt tolerated 2 transfusions of PRBCs last night. Denies CP SOB FC NV Objective - Vital Signs/Intake and Output Vital Signs (last 24 hours): Temp Pulse Resp BP Pulse Ox 98.7 F 81 20 107/58 L 96 10/05/18 07:00 10/05/18 07:00 10/05/18 07:00 10/05/18 07:00 10/05/18 07:00 Intake and Output: 10/05/18 10/05/18 06:59 18:59 Intake Total 1580 Output Total 600 Balance 980 - Medications Medications: Current Medications Amlodipine Besylate (Norvasc) 5 mg PO DAILY [facility] Dextrose (Dextrose 50% Inj) 0 ml IV STAT PRN; Protocol PRN Reason: Hypoglycemia Protocol Dextrose (Glutose 15) 0 gm PO ONCE PRN; Protocol PRN Reason: Hypoglycemia Protocol Finasteride (Proscar) 5 mg PO DAILY [facility] Last Admin: 10/05/18 09:56 Dose: 5 mg Glucagon (Glucagen Diagnostic Kit) 0 mg IM STAT PRN; Protocol PRN Reason: Hypoglycemia Protocol Sodium Chloride (Sodium Chloride 0.9%) 1,000 mls @ 80 mls/hr IV .[id number] [facility] Last Admin: 10/05/18 04:04 Dose: Not Given Ceftriaxone Sodium 1 gm/ (Sodium Chloride) 100 mls @ 100 mls/hr IVPB DAILY [facility]; Protocol Last Admin: 10/05/18 10:04 Dose: 100 mls/hr Dextrose (Dextrose 5% In Water 1000 Ml) 1,000 mls @ 0 mls/hr IV .Q0M PRN; Megan col PRN Reason: Hypoglycemia Protocol Insulin Aspart (Novolog Mix 70/30 (70/30 Units/Ml)) 24 units SC HS [facility] Last Admin: 10/04/18 22:02 Dose: 24 units Insulin Aspart (Novolog) 0 unit SC ACHS [facility]; Protocol Last Admin: 10/05/18 11:15 Dose: Not Given Insulin Human Isoph/Insulin Regular (Novolin 70/30 (70/30 Units/Ml) 10 Ml) 28 units SC DAILY [facility] Last Admin: 10/05/18 09:55 Dose: 28 u Isosorbide Mononitrate (Imdur) 60 mg PO DAILY [facility] Losartan Potassium (Cozaar) 100 mg PO DAILY [facility] Oxybutynin Chloride (Ditropan Xl) 15 mg PO DAILY [facility] Last Admin: 10/05/18 09:59 Dose: 15 mg Rosuvastatin Calcium (Crestor) 10 mg PO HS [facility] Last Admin: 10/04/18 22:01 Dose: 10 mg Sitagliptin Phosphate (Januvia) 25 mg PO DAILY [facility] Last Admin: 10/05/18 09:56 Dose: 25 mg Temazepam (Restoril) 15 mg PO HS [facility] - Labs Labs: 10/05/18 11:33 10/05/18 11:33 PT 15.4 SECONDS (9.7-12.2) H 10/03/18 11:20 INR 1.4 10/03/18 11:20 APTT 32 SECONDS (21-34) 10/03/18 11:20 - Additional Findings Additional findings: - Constitutional Appears: Well, No Acute Distress - Head Exam Head Exam: NORMAL INSPECTION - Eye Exam Eye Exam: EOMI, PERRL Additional comments: Conjunctival pallor - ENT Exam ENT Exam: Normal Oropharynx - Neck Exam Neck Exam: Normal Inspection - Respiratory Exam Respiratory Exam: NORMAL BREATHING PATTERN. absent: Accessory Muscle Use, Rhonchi, Wheezes - Cardiovascular Exam Cardiovascular Exam: REGULAR RHYTHM, +S1, +S2. absent: RRR - GI/Abdominal Exam GI & Abdominal Exam: Soft, Normal Bowel Sounds. absent: Distended, Guarding, Tenderness - Back Exam Back Exam: NORMAL INSPECTION - Neurological Exam Neurological Exam: Altered, Awake, CN II-XII Intact, Oriented x3 - Skin Skin Exam: Intact, Pallor, Petechiae Additional comments: Ecchymosis on left forearm Assessment and Plan - Assessment and Plan (Free Text) Assessment: Patient is an 82 yr old male with past medical history of myelodysplastic syndrome with complaint of fatigue Plan: Anemia secondary to Myelodysplastic syndrome - 5 units of PRBC's transfused so far - Transfuse blood as needed until HgB > 9 - F/u repeat H&H @ 4pm on 10/04 - Dr. Bridges (Heme/onc) is on board Leukopenia secondary to myelodysplastic syndrome -Patient recieving Granix 480mcg SC started 10/03 @ 4pm q24hr for 7 days, dose 1/7 given -Patient to be placed on neutropenic precautions -F/u blood cultures -Monitor patient for neutropenic fevers -Dr. Bridges (Heme/onc) is on board UTI -U/A-Urine blood +3, RBCs = 15, Urine WBC=14 -UCx: Positve for > 100,000 CFU for gram negative rods, follow for Cx results and TARA -Ceftriaxone 1g IVBP qD Thrombocytopenia secondary to myelodysplastic syndrome -Plate[place] @ [address] -Transfuse platelets if <10,000 or bleeding episodes occur -Dr. Bridges (Heme/onc) is on board History of CAD -Rosuvastatin 10mg HS Diabetes Mellitus -Januvia 25mg PO qD -NPH Insulin 70/30 28 units SC daily -Insulin Aspart 24 units SC HS BPH -Finasteride 5mg PO -Oxybutynin 15mg PO qD HTN -Blood pressure optimal currently at 106/59, Pulse 86 -Holding amlodipine, ISMN, and Cozzar PPX -Anticoagulation DVT prophylaxis held due to contraindication, SCD -GI PPX protonix 40mg PO due to anemia Dispo: [facility] PGY1 d/w Dr Moreau
--- NOTE | 2018-10-05 15:27 | CP.PCM.DIS ---
Provider - Provider Date of Admission: 10/03/18 12:07 Attending physician: Oniel Moreau Jr, MD Consults: 10/03/18 13:49 Hematology Oncology Consult Routine Comment: Consulting Provider: Marleni Bridges Consulting Physician: Marleni Bridges Reason for Consult: hx of mds, anemic, thrombopenic Time Spent in preparation of Discharge (in minutes): 45 Diagnosis - Discharge Diagnosis (1) Symptomatic anemia Status: Acute (2) Myelodysplasia (myelodysplastic syndrome) Status: Chronic (3) DM2 (diabetes mellitus, type 2) Status: Chronic (4) HTN (hypertension) Status: Chronic Hospital Course - Lab Results Lab Results: Micro Results 10/03/18 14:45 Blood Blood Culture - Preliminary NO GROWTH AFTER 48 HOURS 10/03/18 14:15 Blood Blood Culture - Preliminary NO GROWTH AFTER 48 HOURS 10/03/18 14:50 Urine Random Urine Culture - Final Escherichia Coli Most Recent Lab Values WBC 0.4 K/uL (4.8-10.8) L* 10/05/18 11:33 RBC 2.91 Mil/uL (4.40-5.90) L 10/05/18 11:33 Hgb 9.2 g/dL (12.0-18.0) L 10/05/18 11:33 Hct 27.1 % (35.0-51.0) L 10/05/18 11:33 MCV 93.1 fL (80.0-94.0) 10/05/18 11:33 MCH 31.8 pg (27.0-31.0) H 10/05/18 11:33 MCHC 34.1 g/dL (33.0-37.0) 10/05/18 11:33 RDW 16.0 % (11.5-14.5) H 10/05/18 11:33 Plt Count 14 K/uL (130-400) L* 10/05/18 11:33 MPV 11.0 fL (7.2-11.7) 10/05/18 11:33 Neut % (Auto) 26.3 % (50.0-75.0) L 10/05/18 11:33 Lymph % (Auto) 60.9 % (20.0-40.0) H 10/05/18 11:33 [place] % (Auto) 10.9 % (0.0-10.0) H 10/05/18 11:33 Eos % (Auto) 1.9 % (0.0-4.0) 10/05/18 11:33 Baso % (Auto) 0.0 % (0.0-2.0) 10/05/18 11:33 Neut # (Auto) 0.1 K/uL (1.8-7.0) L 10/05/18 11:33 Lymph # (Auto) 0.3 K/uL (1.0-4.3) L 10/05/18 11:33 [place] # (Auto) 0.0 K/uL (0.0-0.8) 10/05/18 11:33 Eos # (Auto) 0.0 K/uL (0.0-0.7) 10/05/18 11:33 Baso # (Auto) 0.0 K/uL (0.0-0.2) 10/05/18 11:33 Total Counted Cancelled 10/04/18 19:36 Neutrophils % (Manual) Cancelled 10/04/18 19:36 Band Neutrophils % Cancelled 10/04/18 19:36 Lymphocytes % (Manual) Cancelled 10/04/18 19:36 Reactive Lymphs % Cancelled 10/04/18 19:36 Monocytes % (Manual) Cancelled 10/04/18 19:36 Eosinophils % (Manual) Cancelled 10/04/18 19:36 Basophils % (Manual) Cancelled 10/04/18 19:36 Metamyelocytes % Cancelled 10/04/18 19:36 Myelocytes % Cancelled 10/04/18 19:36 Promyelocytes % Cancelled 10/04/18 19:36 Blast Cells % Cancelled 10/04/18 19:36 Plasma Cell % (Manual) Cancelled 10/04/18 19:36 Nucleated RBC % Cancelled 10/04/18 19:36 Differential Comment 10/03/18 11:20 Hypersegmented Polys Cancelled 10/04/18 19:36 Smudge Cells Cancelled 10/04/18 19:36 Toxic Granulation Cancelled 10/04/18 19:36 Dohle Bodies Cancelled 10/04/18 19:36 Luciano Rods Cancelled 10/04/18 19:36 Platelet Estimate Cancelled 10/04/18 19:36 Plt Clumps, EDTA Cancelled 10/04/18 19:36 Large Platelets Cancelled 10/04/18 19:36 Giant Platelets Cancelled 10/04/18 19:36 RBC Morphology Cancelled 10/04/18 19:36 Polychromasia Cancelled 10/04/18 19:36 Hypochromasia (manual) Cancelled 10/04/18 19:36 Poikilocytosis (manual Cancelled 10/04/18 19:36 Basophilic Stippling Cancelled 10/04/18 19:36 Anisocytosis (manual) Cancelled 10/04/18 19:36 Microcytosis (manual) Cancelled 10/04/18 19:36 Macrocytosis (manual) Cancelled 10/04/18 19:36 Spherocytes Cancelled 10/04/18 19:36 Sickle Cells Cancelled 10/04/18 19:36 Target Cells Cancelled 10/04/18 19:36 Tear Drop Cells Cancelled 10/04/18 19:36 Ovalocytes Cancelled 10/04/18 19:36 Stomatocytes Cancelled 10/04/18 19:36 Helmet Cells Cancelled 10/04/18 19:36 Del Cid-Redway Bodies Cancelled 10/04/18 19:36 [place] Cells Cancelled 10/04/18 19:36 Acanthocytes (Spur) Cancelled 10/04/18 19:36 Rouleaux Cancelled 10/04/18 19:36 Schistocytes Cancelled 10/04/18 19:36 PT 15.4 SECONDS (9.7-12.2) H 10/03/18 11:20 INR 1.4 10/03/18 11:20 APTT 32 SECONDS (21-34) 10/03/18 11:20 Sodium 133 mmol/L (132-148) 10/05/18 11:33 Potassium 4.3 mmol/L (3.6-5.2) 10/05/18 11:33 Chloride 104 mmol/L (98-107) 10/05/18 11:33 Carbon Dioxide 24 mmol/L (22-30) 10/05/18 11:33 Anion Gap 10 (10-20) 10/05/18 11:33 BUN 27 mg/dL (9-20) H 10/05/18 11:33 Creatinine 1.0 mg/dL (0.8-1.5) 10/05/18 11:33 Est GFR ( Amer) > 60 10/05/18 11:33 Est GFR (Non-Af Amer) > 60 10/05/18 11:33 POC Glucose (mg/dL) 134 mg/dL (65-110) H 10/05/18 11:05 Random Glucose 125 mg/dL (75-110) H D 10/05/18 11:33 Calcium 8.1 mg/dl (8.6-10.4) L 10/05/18 11:33 Phosphorus 4.2 mg/dL (2.5-4.5) 10/03/18 11:20 Magnesium 1.9 mg/dL (1.6-2.3) 10/03/18 11:20 Total Bilirubin 0.7 mg/dL (0.2-1.3) 10/05/18 11:33 AST 32 U/L (17-59) 10/05/18 11:33 ALT 18 U/L (21-72) L D 10/05/18 11:33 Alkaline Phosphatase 48 U/L (38-126) 10/05/18 11:33 Total Protein 6.4 g/dL (6.3-8.3) 10/05/18 11:33 Albumin 3.0 g/dL (3.5-5.0) L 10/05/18 11:33 Globulin 3.4 gm/dL (2.2-3.9) 10/05/18 11:33 Albumin/Globulin Ratio 0.9 (1.0-2.1) L 10/05/18 11:33 Urine Color Yellow (YELLOW) 10/03/18 14:50 Urine Clarity Hazy (Clear) 10/03/18 14:50 Urine pH 5.0 (5.0-8.0) 10/03/18 14:50 Ur Specific [place] 1.015 (1.003-1.030) 10/03/18 14:50 Urine Protein Negative mg/dL (NEGATIVE) 10/03/18 14:50 Urine Glucose (UA) 3+ mg/dL (Normal) H 10/03/18 14:50 Urine Ketones Negative mg/dL (NEGATIVE) 10/03/18 14:50 Urine Blood 3+ (NEGATIVE) H 10/03/18 14:50 Urine Nitrate Negative (NEGATIVE) 10/03/18 14:50 Urine Bilirubin Negative (NEGATIVE) 10/03/18 14:50 Urine Urobilinogen Normal mg/dL (0.2-1.0) 10/03/18 14:50 Ur Leukocyte Esterase Trace [place]/uL (Negative) 10/03/18 14:50 Urine WBC (Auto) 14 /hpf (0-5) H 10/03/18 14:50 Urine RBC (Auto) 15 /hpf (0-3) H 10/03/18 14:50 Ur Squamous Epith Cells 1 /hpf (0-5) 10/03/18 14:50 Amorphous Sediment Occ /ul (<OCC) H 10/03/18 14:50 Urine Bacteria Few (<OCC) H 10/03/18 14:50 Blood Type AB POSITIVE 10/03/18 11:20 Antibody Screen Negative 10/03/18 11:20 - Hospital Course Hospital Course: Pt was admitted for symptomatic anemia, pt was transfused totoal of 5 units, Hg was brought above [address] Bridges's recs. Pt improved and will continue with grannix dosing outp w/ Dr Bridges Please take the following medications as prescribed: amLODIPine [Norvasc] 5 mg PO DAILY #14 tab Atorvastatin [Lipitor] 20 mg PO HS #14 tab Empagliflozin [Jardiance] 10 mg PO DAILY #14 tablet Finasteride [Proscar] 5 mg PO DAILY #14 tab Isosorbide Mononitrate [Imdur] 60 mg PO DAILY #14 tab Losartan Potassium 100 mg PO DAILY #14 tablet Oxybutynin Chloride [Oxybutynin Chloride ER] 15 mg PO DAILY #14 tab.er.24 You may also continue your Grannix treatments with Dr Bridges, please see him Monday in office to follow up Please follow up with Dr Moreau within 7 days of discharge If symptoms return, please seek medical attention immediately take care and be well CK PGY1 Discharge Exam - Head Exam Head Exam: NORMAL INSPECTION - Eye Exam Eye Exam: EOMI, Normal appearance, PERRL - ENT Exam ENT Exam: Mucous Membranes Moist - Neck Exam Neck exam: Full Rom - Respiratory Exam Respiratory Exam: Clear to PA & Lateral, NORMAL BREATHING PATTERN - Cardiovascular Exam Cardiovascular Exam: RRR, +S1, +S2 - GI/Abdominal Exam GI & Abdominal Exam: Unremarkable - Neurological Exam Neurological exam: Alert, CN II-XII Intact, Oriented x3 - Skin Skin Exam: Normal Color, Warm Discharge Plan - Discharge Medications Prescriptions: amLODIPine [Norvasc] 5 mg PO DAILY #14 tab Atorvastatin [Lipitor] 20 mg PO HS #14 tab Empagliflozin [Jardiance] 10 mg PO DAILY #14 tablet Finasteride [Proscar] 5 mg PO DAILY #14 tab Isosorbide Mononitrate [Imdur] 60 mg PO DAILY #14 tab Losartan Potassium 100 mg PO DAILY #14 tablet Oxybutynin Chloride [Oxybutynin Chloride ER] 15 mg PO DAILY #14 tab.er.24 - Follow Up Plan Condition: GUARDED Disposition: HOME/ ROUTINE Instructions: Anemia of Chronic Disease (DC) Additional Instructions: Please take the following medications as prescribed: amLODIPine [Norvasc] 5 mg PO DAILY #14 tab Atorvastatin [Lipitor] 20 mg PO HS #14 tab Empagliflozin [Jardiance] 10 mg PO DAILY #14 tablet Finasteride [Proscar] 5 mg PO DAILY #14 tab Isosorbide Mononitrate [Imdur] 60 mg PO DAILY #14 tab Losartan Potassium 100 mg PO DAILY #14 tablet Oxybutynin Chloride [Oxybutynin Chloride ER] 15 mg PO DAILY #14 tab.er.24 You may also continue your Grannix treatments with Dr Bridges, please see him Monday in office to follow up Please follow up with Dr Moreau within 7 days of discharge If symptoms return, please seek medical attention immediately take care and be well CK PGY1 Referrals: Marleni Bridges MD [Staff Provider] - Oniel Moreau Jr., MD [Medical Doctor] -
[2018-10-05 16:00] VITALS: BP 119/66; PULSE 79; TEMP 98
--- NOTE | 2018-10-06 08:28 | CON ---
DATE: 10/05/2018 REASON FOR CONSULTATION: Consult for evaluation of pancytopenia. HISTORY OF PRESENT ILLNESS: An 83-year-old gentleman with a known case of myelodysplastic syndrome, being treated with Vidaza, admitted on 10/03/2018 because of the chills and severe symptomatic anemia. The patient has received transfusion. Hemoglobin has improved. No more fever or chills. Feeling much better. PAST MEDICAL HISTORY: Significant for hypertension, diabetes mellitus, coronary artery disease, and myelodysplastic syndrome. PAST SURGICAL HISTORY: Coronary stent in 2014. MEDICATIONS: The patient is on Jardiance 10 mg daily, amlodipine 5 mg daily, isosorbide ER 60 mg daily, losartan potassium 100 mg daily, atorvastatin 20 mg at bedtime, oxybutynin ER 15 mg at bedtime, finasteride 5 mg at bedtime, Humulin 70/30 at 28 units and 24 units, and temazepam 15 mg at bedtime. ALLERGIES: NO KNOWN DRUG ALLERGIES. FAMILY HISTORY: History of uterine cancer. SOCIAL HISTORY: Nonsmoker. No ethanol abuse. REVIEW OF SYSTEMS: Denies any headaches, dizziness, or blackout. No chest pain or palpitation. No fever or chills. No cough or sputum. Good appetite. No weight loss. Denies any abdominal pain. No nausea, vomiting, melena, hemoptysis, or hematemesis. No dysuria or hematuria. No change in the bowel habit. No change in the color of the stool. No tingling or numbness. No localized weakness. No bone pain. PHYSICAL EXAMINATION: GENERAL: Awake, alert, and oriented, quiet, pleasant, not in acute distress. VITAL SIGNS: Temperature 98.4, pulse 78, blood pressure 110/51, and respiration 20. HEENT: Head: Normocephalic and atraumatic. Eyes: Conjunctivae pink. Sclerae white. Pupils reacting to light. Ears, nose, and throat within normal limits. LUNGS: Bilaterally good air entry. Clear to auscultation and percussion. HEART: S1 and S2, regular. No gallop. No murmur. ABDOMEN: Soft, not distended, and nontender. No hepatosplenomegaly. CENTRAL NERVOUS SYSTEM: No gross motor or sensory deficits. LYMPH NODES: No cervical, axillary, or inguinal lymph nodes palpable. EXTREMITIES: No edema. No cyanosis. No clubbing. No varicose vein. LABORATORY DATA: WBC 400, hemoglobin 9.2, platelet counts 14,000. IMPRESSION: Myelodysplastic syndrome. PLAN: Clinical status discussed with the patient and the son. The patient will receive Granix 480 mcg subcutaneously today before discharge home. We will continue Neupogen as an outpatient. The patient and son have understood and agreed with it. Follow up with me on 10/10/2018. Thank you for letting me to participate in the care of this patient, and I will follow up the patient with you. Jakob Bridges MD cc: Oniel Moreau MD
== END 2018-10-05 17:35 | disposition home or self-care (01) | DRG 812 ==
LOC: C.ER 10:11 → C.9E 12:07 → C.3T 12:33
PROVIDERS: ADMIT Internal Medicine; ATTEND Internal Medicine
DX: D46.9 Myelodysplastic syndrome, unspecified (principal); N39.0 Urinary tract infection, site not specified; I25.10 Atherosclerotic heart disease of native coronary artery without angina pectoris; I45.10 Unspecified right bundle-branch block; Z79.4 Long term (current) use of insulin; Z87.891 Personal history of nicotine dependence; Z95.5 Presence of coronary angioplasty implant and graft; I10 Essential (primary) hypertension; E11.9 Type 2 diabetes mellitus without complications

== ENCOUNTER 2018-10-29 16:29 | Observation (INO) | payer MEDICARE, OTHER ==
[2018-10-29 16:29] VITALS: BMI 29.8
--- NOTE | 2018-10-29 17:06 | C.PDOC ---
History Of Present Illness 82-year-old male, whose past medical history includes MDS, presents to the ED for evaluation of dizziness and lightheadedness. Patient states his last chemotherapy session was last Monday (5 days ago). Patient denies fever, chills or any other complaints at this time. Time Seen by Provider: 10/29/18 16:42 Chief Complaint (Nursing): Dizziness/Lightheaded History Per: Patient History/Exam Limitations: no limitations Onset/Duration Of Symptoms: Hrs Current Symptoms Are (Timing): Still Present Past Medical History Reviewed: Historical Data, Nursing Documentation, Vital Signs Vital Signs: Last Vital Signs Temp 97.4 F L 10/29/18 16:53 Pulse 84 10/29/18 16:53 Resp 20 10/29/18 16:53 BP 110/64 10/29/18 16:53 Pulse Ox 99 10/29/18 16:53 Primary Care Provider: Marleni Bridges - Medical History PMH: Anemia, Arthritis, CAD, Diabetes, HTN Denies: Chronic Kidney Disease Surgical History: Appendectomy (1989), Coronary Stent (2010) - [facility] Procedures INSERT VAD RESERVOIR IN CHEST SUBCU/FASCIA, PERC (07/04/18) INSERTION OF INFUSION DEV INTO SUP VENA CAVA, PERC APPROACH (07/04/18) LEFT HEART CARDIAC CATH (04/16/13) LT HEART ANGIOCARDIOGRAM (04/16/13) TRANSFUSE NONAUT PLATELETS IN PERIPH VEIN, PERC (07/04/18) TRANSFUSE NONAUT RED BLOOD CELLS IN PERIPH VEIN, PERC (08/31/18) Family History: States: Unknown Family Hx - Social History Hx Tobacco Use: No Hx Alcohol Use: No Hx Substance Use: No - Immunization History Hx Tetanus Toxoid Vaccination: No Hx Influenza Vaccination: Yes (2018) Hx Pneumococcal Vaccination: Yes (3 years ago) Review Of Systems Constitutional: Negative for: Fever, Chills Neurological: Positive for: Dizziness, Other (lightheadedness ) Physical Exam - Physical Exam Appears: Non-toxic, No Acute Distress Skin: Warm, Dry, Pale (mild ) Head: Atraumatic, Normacephalic Eye(s): bilateral: Normal Inspection Oral Mucosa: Moist Neck: Supple Chest: Symmetrical, No Deformity, No Tenderness Cardiovascular: Rhythm Regular, No Murmur Respiratory: Normal Breath Sounds, No Rales, No Rhonchi, No Wheezing Gastrointestinal/Abdominal: Soft, No Tenderness, No Guarding, No Rebound Extremity: Normal ROM, Capillary Refill (less than 2 seconds ) Neurological/Psych: Oriented x3, Normal Speech, Normal Cognition ED Course And Treatment - Laboratory Results Result Diagrams: 10/29/18 17:19 10/29/18 17:19 O2 Sat by Pulse Oximetry: 99 (on RA) Pulse Ox Interpretation: Normal Medical Decision Making Medical Decision Making: ro anemia, other eitology. Progress: Bloodwork, urinalysis, CXR, EKG ordered and reviewed. mild anemia dr lora request 1 u, otherwisel labs neg. neutorpenic precautions iniate.d accepted dr lora Disposition - Disposition Disposition: HOSPITALIZED Disposition Time: 19:00 Condition: STABLE - Clinical Impression Clinical Impression: Pancytopenia - Scribe Statement The provider has reviewed the documentation as recorded by the Scribe (Mine Henriquez) Provider Attestation: All medical record entries made by the Scribe were at my direction and personally dictated by me. I have reviewed the chart and agree that the record accurately reflects my personal performance of the history, physical exam, medical decision making, and the department course for this patient. I have also personally directed, reviewed, and agree with the discharge instructions and disposition.
[2018-10-29 17:29] LABS: BASO % 0.7 % (0.0-2.0); EOS % 0.8 % (0.0-4.0); HEMOGLOBIN 7.7 g/dL (12.0-18.0); LYMPH # 0.4 K/uL (1.0-4.3); LYMPH % 46.1 % (20.0-40.0); MEAN CELL VOLUME 89.2 fL (80.0-94.0); MEAN CORPUSCULAR HEMOGLOBIN 31.1 pg (27.0-31.0); MEAN CORPUSCULAR HGB CONC 34.8 g/dL (33.0-37.0); MEAN PLATELET VOLUME 7.5 fL (7.2-11.7); NEUT # 0.4 K/uL (1.8-7.0); NEUT % 51.4 % (50.0-75.0); NRBC % 0.9 % (0.0-2.0); RBC 2.46 Mil/uL (4.40-5.90); RED CELL DISTRIBUTION WIDTH 16.1 % (11.5-14.5)
[2018-10-29 17:32] LABS: INR 1.3; PARTIAL THROMBOPLASTIN TIME 31.7 SECONDS (21-34); PROTHROMBIN TIME 14.4 SECONDS (9.7-12.2)
[2018-10-29 17:39] LABS: WHITE BLOOD COUNT 0.8 K/uL (4.8-10.8)
[2018-10-29 17:48] LABS: ALB/GLOB RATIO 0.8 (1.0-2.1); ALBUMIN 3.8 g/dL (3.5-5.0); ALT/SGPT 15 U/L (21-72); AST/SGOT 17 U/L (17-59); BLOOD UREA NITROGEN 33 mg/dL (9-20); CALCIUM 9.9 mg/dl (8.6-10.4); GFR NON-AFRICAN AMERICAN 49
[2018-10-29 17:49] LABS: SQUAMOUS EPITHIAL 2 /hpf (0-5); URINE BACTERIA RARE (<OCC); URINE BILIRUBIN NEGATIVE (NEGATIVE); URINE BLOOD NEGATIVE (NEGATIVE); URINE CLARITY Hazy (Clear); URINE COLOR Yellow (YELLOW); URINE GLUCOSE (UA) NORMAL (Normal); URINE LEUKOCYTE ESTERASE NEG Leu/uL (Negative); URINE PROTEIN NEGATIVE (NEGATIVE); URINE UROBILINOGEN NORMAL mg/dL (0.2-1.0)
--- NOTE | 2018-10-29 18:10 | CP.PCM.HP ---
History of Present Illness - History of Present Illness History of Present Illness: Patient is an 82-year-old male with past medical history of HTN, DM2, CAD, and myelodysplastic syndrome (dx 2.5yrs ago) with associated pancytopenia who presents to the ED as requested by PMD Dr. Moreau for anemia with reported hgb of 6. Patient reports he is being treated by Dr. Bridges for myelodysplastic syndrome. Patient is reporting some gait instability during today's exam he says for the past couple of days. Patient also reports some weakness for the past couple of days.Patient denies chest pain, SOB, palpitations, dizziness, headaches, n/v, diarrhea, leg swelling, abdominal pain, dysuria. PMD: Dr. Moreau, Heme/Onc: Dr. Bridges, Cardio: Dr. Simmons PMHx: HTN, DM2, CAD, myelodysplastic syndrome PSHx: stents x2 2012, appendectomy Meds: Jardiance 10 mg qd, amlodipine 5 mg qd, isosorbide mononitrate ER 60 mg qd, losartan potassium 100 mg qd, atorvastatin 20 mg qhs, oxybutinin ER 15 mg qhs, finasteride 5 mg qhs, Humulin 70/30 28 unit & 24 units, temazepam 15 mg qhs Allergies: NKDA FamHx: uterine ca SocHx: denies alcohol/drug use, former smoker quit 27 years ago Present on Admission - Present on Admission Any Indicators Present on Admission: No Review of Systems - Constitutional Constitutional: Malaise, Night Sweats. absent: Daytime Sleepiness, Excessive Sweating, Lethargy - EENT Eyes: Change in Vision. absent: Decreased Night Vision, Tunnel Vision Ears: absent: Tinnitus Nose/Mouth/Throat: absent: Nasal Obstruction, Change in Voice, Odynophagia - Cardiovascular Cardiovascular: absent: Chest Pain, Chest Pain at Rest, Edema, Irregular Heart Rhythm, Orthopnea, Syncope - Respiratory Respiratory: absent: Dyspnea on Exertion, Change in Mucous Color - Gastrointestinal Gastrointestinal: absent: Bloating, Change in Bowel Habits, Cramping, Diarrhea - Genitourinary Genitourinary: absent: Dysuria, Flank Pain, Urinary Urgency, Bladder Distension - Musculoskeletal Musculoskeletal: absent: Back Pain, Myalgias, Neck Pain - Integumentary Integumentary: absent: Change in Hair, Change in Nails, Hirsutism, Lesions - Neurological Neurological: absent: Abnormal Speech, Numbness, Memory Loss, Vertigo, Weakness - Psychiatric Psychiatric: absent: Anxiety, Auditory Hallucinations, Difficulty Concentrating, Panic Attacks - Endocrine Endocrine: absent: Change in Libido, Cold Intolorance, Palpitations Past Patient History - Past Medical History & Family History Past Medical History?: Yes - Past Social History Smoking Status: Former Smoker - CARDIAC Hx Hypertension: Yes - PULMONARY Hx Respiratory Disorders: No - NEUROLOGICAL Hx Neurological Disorder: No - HEENT Hx HEENT Problems: No - RENAL Hx Chronic Kidney Disease: No - ENDOCRINE/METABOLIC Hx Diabetes Mellitus Type 1: Yes - HEMATOLOGICAL/ONCOLOGICAL Hx Anemia: Yes - INTEGUMENTARY Hx Dermatological Problems: No - MUSCULOSKELETAL/RHEUMATOLOGICAL Hx Arthritis: Yes - GASTROINTESTINAL Hx Gastrointestinal Disorders: No - GENITOURINARY/GYNECOLOGICAL Hx Genitourinary Disorders: No - PSYCHIATRIC Hx Substance Use: No - SURGICAL HISTORY Hx Appendectomy: Yes (1989) Hx Coronary Stent: Yes (2010) - ANESTHESIA Hx Anesthesia: Yes Hx Anesthesia Reactions: No Hx Malignant Hyperthermia: No Meds Allergies/Adverse Reactions: Allergies Allergy/AdvReac Type Severity Reaction Status Date / Time No Known Allergies Allergy Verified 10/29/18 16:53 Physical Exam - Head Exam Head Exam: ATRAUMATIC, NORMAL INSPECTION, NORMOCEPHALIC - Eye Exam Eye Exam: EOMI, Normal appearance, PERRL Pupil Exam: NORMAL ACCOMODATION, PERRL - ENT Exam ENT Exam: Mucous Membranes Moist, Normal Exam - Neck Exam Neck exam: Positive for: Normal Inspection - Respiratory Exam Respiratory Exam: Clear to Auscultation Bilateral, NORMAL BREATHING PATTERN. absent: Decreased Breath Sounds, Stridor - Cardiovascular Exam Cardiovascular Exam: REGULAR RHYTHM, +S1, +S2. absent: Tachycardia, Systolic Murmur - GI/Abdominal Exam GI & Abdominal Exam: Normal Bowel Sounds - Extremities Exam Extremities exam: Positive for: normal inspection - Back Exam Back exam: NORMAL INSPECTION. absent: CVA tenderness (R), vertebral tenderness - Neurological Exam Neurological exam: Alert, CN II-XII Intact, Normal Gait, Oriented x3 - Psychiatric Exam Psychiatric exam: Normal Affect, Normal Mood - Skin Skin Exam: Dry, Intact, Normal Color, Warm Results - Vital Signs Recent Vital Signs: Last Vital Signs Temp 98 F 10/29/18 17:50 Pulse 83 05/13/19 17:50 Resp 16 10/29/18 17:50 BP 116/58 L 10/29/18 17:50 Pulse Ox 96 10/29/18 17:50 - Labs Result Diagrams: 10/29/18 17:19 10/29/18 17:19 Labs: Laboratory Results - last 24 hr 10/29/18 10/29/18 10/29/18 17:19 17:19 17:19 WBC 0.8 L* D RBC 2.46 L Hgb 7.7 L Hct 22.0 L MCV 89.2 D MCH 31.1 H MCHC 34.8 RDW 16.1 H Plt Count 21 L* MPV 7.5 Neut % (Auto) 51.4 Lymph % (Auto) 46.1 H [place] % (Auto) 1.0 Eos % (Auto) 0.8 Baso % (Auto) 0.7 Neut # (Auto) 0.4 L Lymph # (Auto) 0.4 L [place] # (Auto) 0.0 Eos # (Auto) 0.0 Baso # (Auto) 0.0 PT 14.4 H INR 1.3 APTT 31.7 Sodium 133 Potassium 5.1 Chloride 95 L Carbon Dioxide 29 Anion Gap 15 BUN 33 H Creatinine 1.4 Est GFR ( Amer) 59 Est GFR (Non-Af Amer) 49 Random Glucose 125 H Calcium 9.9 Total Bilirubin 1.1 AST 17 D ALT 15 L Alkaline Phosphatase 63 Troponin I < 0.0120 Total Protein 8.4 H Albumin 3.8 Globulin 4.6 H Albumin/Globulin Ratio 0.8 L Urine Color Urine Clarity Urine pH Ur Specific [place] Urine Protein Urine Glucose (UA) Urine Ketones Urine Blood Urine Nitrate Urine Bilirubin Urine Urobilinogen Ur Leukocyte Esterase Urine WBC (Auto) Urine RBC (Auto) Ur Squamous Epith Cells Urine Bacteria 10/29/18 17:26 WBC RBC Hgb Hct MCV MCH MCHC RDW Plt Count MPV Neut % (Auto) Lymph % (Auto) [place] % (Auto) Eos % (Auto) Baso % (Auto) Neut # (Auto) Lymph # (Auto) [place] # (Auto) Eos # (Auto) Baso # (Auto) PT INR APTT Sodium Potassium Chloride Carbon Dioxide Anion Gap BUN Creatinine Est GFR ( Amer) Est GFR (Non-Af Amer) Random Glucose Calcium Total Bilirubin AST ALT Alkaline Phosphatase Troponin I Total Protein Albumin Globulin Albumin/Globulin Ratio Urine Color Yellow Urine Clarity Hazy Urine pH 7.0 Ur Specific [place] 1.010 Urine Protein Negative Urine Glucose (UA) Normal Urine Ketones Negative Urine Blood Negative Urine Nitrate Negative Urine Bilirubin Negative Urine Urobilinogen Normal Ur Leukocyte Esterase Neg Urine WBC (Auto) 2 Urine RBC (Auto) 1 Ur Squamous Epith Cells 2 Urine Bacteria Rare Assessment & Plan - Assessment and Plan (Free Text) Plan: 82 male w/ PMhx of HTN, DM2, CAD, and myelodysplastic syndrome (dx 2.5yrs ago) presents w/ acute anemia Plan: Acute anemia Likely 2/2 due to myelodysplastic syndrome - hgb 7.7s, WBCs 0.8, plts 21 - baseline hgb 9s, wbcs 0.7s, plts 19s - transfuse 1X PRBCs - f/u stool occult - f/u heme/onc consutl Dr. Bridges Leukopenia - F/u Blood cultures History of hypertension - BP currently 110'S - hold home medications cozaar 100 mg daily, isosrbide mononitrate 60 mg daily, amlodipine 5 mg PO daily History of hyperlipidemia - c/w home medication atorvastatin 10 mg daily History of diabetes - ISS - hypoglyemic protocol - accucheck achs History of BPH - Verify home medication proscar 5 mg daily, oxybutynin XL 15 mg PO daily Ppx - DVT: VTE contraindicated 2/2 to thrombopenia - GI: not indicated -PT -Fall risk checks Plan discussed with Attending Dr. Moreau. Abraham Kendrick, PGY-2
[2018-10-29] MEDS ORDERED: Glucagon Recombinant 1 mg Inj IM PRN (18:30)
[2018-10-29] MEDS ORDERED: Dextrose 50% SYRINGE Inj (50 ml) IV PRN (18:30)
--- NOTE | 2018-10-29 18:54 | RAD ---
Date of service: 10/29/2018 PROCEDURE: CHEST RADIOGRAPH, 1 VIEW HISTORY: chest pain COMPARISON: 10/03/2018. FINDINGS: LUNGS: Clear. PLEURA: No pneumothorax or pleural fluid seen. CARDIOVASCULAR: Atherosclerotic calcifications identified primarily aortic arch. Venous access catheter in stable, satisfactory position. No radiographic findings to suggest acute or significant cardiovascular disease. OSSEOUS STRUCTURES: No significant abnormalities. VISUALIZED UPPER ABDOMEN: Normal. OTHER FINDINGS: None. IMPRESSION: No active disease.No significant interval change compared to the prior examination(s).
[2018-10-29] MEDS: (Novolin R) Insulin Human Regular 100 units/ml vial SC SCH (20:59)
[2018-10-30 06:48] LABS: BASO % 0.7 % (0.0-2.0); EOS % 0.9 % (0.0-4.0); LYMPH # 0.6 K/uL (1.0-4.3); LYMPH % 67.9 % (20.0-40.0); MEAN CELL VOLUME 90.5 fL (80.0-94.0); MEAN CORPUSCULAR HEMOGLOBIN 31.7 pg (27.0-31.0); MEAN PLATELET VOLUME 9.5 fL (7.2-11.7); MONO % 0.5 % (0.0-10.0); NEUT # 0.3 K/uL (1.8-7.0); NRBC % 0.4 % (0.0-2.0); RBC 2.53 Mil/uL (4.40-5.90); RED CELL DISTRIBUTION WIDTH 15.2 % (11.5-14.5)
[2018-10-30 06:53] LABS: WHITE BLOOD COUNT 0.9 K/uL (4.8-10.8)
[2018-10-30 07:20] LABS: ALB/GLOB RATIO 0.8 (1.0-2.1); ALBUMIN 3.7 g/dL (3.5-5.0); ALT/SGPT 13 U/L (21-72); AST/SGOT 17 U/L (17-59); BLOOD UREA NITROGEN 30 mg/dL (9-20); CALCIUM 8.9 mg/dl (8.6-10.4); GFR NON-AFRICAN AMERICAN 58
[2018-10-30] MEDS ORDERED: Calcium Carbonate 500 mg Chewable Antacid Tab PO ONE (07:45)
[2018-10-30] MEDS: (Novolin R) Insulin Human Regular 100 units/ml vial SC SCH ×3 (08:14→16:52)
--- NOTE | 2018-10-30 10:28 | CP.PCM.PN ---
Subjective - Date & Time of Evaluation Date of Evaluation: 10/30/18 Time of Evaluation: 07:00 - Subjective Subjective: Progress note for Dr. Moreau Patient seen and examined at bedside. Received 1u PRBC. States he feels much better. Weakness has resolved. Denies fever, chills, nausea, vomiting, chest pain, shortness of breath, dizziness, lightheadedness. Objective - Vital Signs/Intake and Output Vital Signs (last 24 hours): Temp Pulse Resp BP Pulse Ox 98.2 F 71 20 111/62 98 10/30/18 07:00 10/30/18 07:00 10/30/18 07:00 10/30/18 07:00 10/30/18 07:00 Intake and Output: 10/30/18 10/30/18 06:59 18:59 Intake Total 300 Balance 300 - Medications Medications: Current Medications Dextrose (Dextrose 50% Inj) 0 ml IV STAT PRN; Protocol PRN Reason: Hypoglycemia Protocol Dextrose (Glutose 15) 0 gm PO ONCE PRN; Protocol PRN Reason: Hypoglycemia Protocol Glucagon (Glucagen Diagnostic Kit) 0 mg IM STAT PRN; Protocol PRN Reason: Hypoglycemia Protocol Dextrose (Dextrose 5% In Water 1000 Ml) 1,000 mls @ 0 mls/hr IV .Q0M PRN; Protocol PRN Reason: Hypoglycemia Protocol Insulin Human Regular (Novolin R) [address] [facility]; Protocol Last Admin: 10/30/18 08:14 Dose: Not Given Pantoprazole Sodium (Protonix Inj) 40 mg IVP DAILY [facility] Last Admin: 10/30/18 09:30 Dose: 40 mg Rosuvastatin Calcium (Crestor) 10 mg PO HS [facility] Last Admin: 10/29/18 21:27 Dose: 10 mg - Labs Labs: 10/30/18 06:38 10/30/18 06:38 PT 14.4 SECONDS (9.7-12.2) H 10/29/18 17:19 INR 1.3 10/29/18 17:19 APTT 31.7 SECONDS (21-34) 10/29/18 17:19 - Constitutional Appears: Non-toxic, No Acute Distress - Head Exam Head Exam: ATRAUMATIC, NORMOCEPHALIC - Eye Exam Eye Exam: EOMI, PERRL Additional comments: conjunctival pallor - ENT Exam ENT Exam: Mucous Membranes Moist - Neck Exam Neck Exam: Full ROM, Normal Inspection - Respiratory Exam Respiratory Exam: Clear to Ausculation Bilateral, NORMAL BREATHING PATTERN. absent: Rales, Rhonchi, Wheezes, Respiratory Distress - Cardiovascular Exam Cardiovascular Exam: REGULAR RHYTHM, +S1, +S2. absent: Murmur - GI/Abdominal Exam GI & Abdominal Exam: Soft, Normal Bowel Sounds. absent: Distended, Firm, Guarding, Rigid, Rebound - Extremities Exam Extremities Exam: Full ROM, Normal Capillary Refill, Normal Inspection. absent: Tenderness - Neurological Exam Neurological Exam: Alert, Awake, Oriented x3 Neuro motor strength exam: Left Upper Extremity: 5, Right Upper Extremity: 5, Left Lower Extremity: 5, Right Lower Extremity: 5 - Psychiatric Exam Psychiatric exam: Normal Affect, Normal Mood - Skin Skin Exam: Dry, Intact, Warm Additional comments: slight pallor Assessment and Plan - Assessment and Plan (Free Text) Plan: 82 male w/ PMhx of HTN, DM2, CAD, and myelodysplastic syndrome (dx 2.5yrs ago) presents w/ acute anemia Acute anemia Likely 2/2 due to myelodysplastic syndrome - hgb 7.7s, WBCs 0.8, plts 21 on admission - baseline hgb 9s, wbcs 0.7s, plts 19s - transfused 1X PRBCs on 10/29-> hgb 8.0 following transfusion - Additional 1 unit PRBC ordered for 10/30/18 - f/u stool occult - f/u heme/onc consutl Dr. Bridges Leukopenia - F/u Blood cultures History of hypertension - BP currently 110's on admission - hold home medications cozaar 100 mg daily, isosrbide mononitrate 60 mg daily, amlodipine 5 mg PO daily History of hyperlipidemia - c/w home medication atorvastatin 10 mg daily History of diabetes - ISS - hypoglyemic protocol - accucheck achs History of BPH - home medication proscar 5 mg daily, oxybutynin XL 15 mg PO daily History of Insomnia - home med Restoril 15mg PO HS Ppx - DVT: VTE contraindicated 2/2 to thrombopenia - GI: not indicated - PT - Fall risk checks Dispo: Additional 1 unit PRBC ordered for 10/30/18 Plan discussed with Attending Dr. Moreau. Carlene Coon, PGY-1
[2018-10-30] MEDS ORDERED: (Novolin 70/30) NPH/Regular 70/30 Units/ml 10 ml vial SC SCH (11:30)
[2018-10-30] MEDS ORDERED: Oxybutynin XL 15 mg Tab PO SCH (11:30)
[2018-10-30 14:15] VITALS: RESP 20
--- NOTE | 2018-10-30 14:49 | CP.PCM.DIS ---
Provider - Provider Date of Admission: 10/29/18 17:51 Attending physician: Oniel Moreau Jr, MD Consults: 10/29/18 18:31 Hematology Oncology Consult Routine Comment: Consulting Provider: Marleni Bridges Consulting Physician: Marleni Bridges Reason for Consult: hx of mds Time Spent in preparation of Discharge (in minutes): 35 Diagnosis - Discharge Diagnosis (1) Pancytopenia Status: Acute (2) Myelodysplasia (myelodysplastic syndrome) Status: Chronic Hospital Course - Lab Results Lab Results: Most Recent Lab Values WBC 0.9 K/uL (4.8-10.8) L* 10/30/18 06:38 RBC 2.53 Mil/uL (4.40-5.90) L 10/30/18 06:38 Hgb 8.0 g/dL (12.0-18.0) L 10/30/18 06:38 Hct 22.9 % (35.0-51.0) L 10/30/18 06:38 MCV 90.5 fL (80.0-94.0) 10/30/18 06:38 MCH 31.7 pg (27.0-31.0) H 10/30/18 06:38 MCHC 35.0 g/dL (33.0-37.0) 10/30/18 06:38 RDW 15.2 % (11.5-14.5) H 10/30/18 06:38 Plt Count 17 K/uL (130-400) L* 10/30/18 06:38 MPV 9.5 fL (7.2-11.7) 10/30/18 06:38 Neut % (Auto) 30.0 % (50.0-75.0) L 10/30/18 06:38 Lymph % (Auto) 67.9 % (20.0-40.0) H 10/30/18 06:38 [place] % (Auto) 0.5 % (0.0-10.0) 10/30/18 06:38 Eos % (Auto) 0.9 % (0.0-4.0) 10/30/18 06:38 Baso % (Auto) 0.7 % (0.0-2.0) 10/30/18 06:38 Neut # (Auto) 0.3 K/uL (1.8-7.0) L 10/30/18 06:38 Lymph # (Auto) 0.6 K/uL (1.0-4.3) L 10/30/18 06:38 [place] # (Auto) 0.0 K/uL (0.0-0.8) 10/30/18 06:38 Eos # (Auto) 0.0 K/uL (0.0-0.7) 10/30/18 06:38 Baso # (Auto) 0.0 K/uL (0.0-0.2) 10/30/18 06:38 PT 14.4 SECONDS (9.7-12.2) H 10/29/18 17:19 INR 1.3 10/29/18 17:19 APTT 31.7 SECONDS (21-34) 10/29/18 17:19 Sodium 136 mmol/L (132-148) 10/30/18 06:38 Potassium 4.7 mmol/L (3.6-5.2) 10/30/18 06:38 Chloride 100 mmol/L (98-107) 10/30/18 06:38 Carbon Dioxide 26 mmol/L (22-30) 10/30/18 06:38 Anion Gap 15 (10-20) 10/30/18 06:38 BUN 30 mg/dL (9-20) H 10/30/18 06:38 Creatinine 1.2 mg/dL (0.8-1.5) 10/30/18 06:38 Est GFR ( Amer) > 60 10/30/18 06:38 Est GFR (Non-Af Amer) 58 10/30/18 06:38 POC Glucose (mg/dL) 145 mg/dL (65-110) H 10/30/18 11:14 Random Glucose 107 mg/dL (75-110) 10/30/18 06:38 Calcium 8.9 mg/dl (8.6-10.4) 10/30/18 06:38 Total Bilirubin 1.0 mg/dL (0.2-1.3) 10/30/18 06:38 AST 17 U/L (17-59) 10/30/18 06:38 ALT 13 U/L (21-72) L 10/30/18 06:38 Alkaline Phosphatase 59 U/L (38-126) 10/30/18 06:38 Troponin I < 0.0120 ng/mL (0.00-0.120) 10/29/18 17:19 Total Protein 8.0 g/dL (6.3-8.3) 10/30/18 06:38 Albumin 3.7 g/dL (3.5-5.0) 10/30/18 06:38 Globulin 4.3 gm/dL (2.2-3.9) H 10/30/18 06:38 Albumin/Globulin Ratio 0.8 (1.0-2.1) L 10/30/18 06:38 Urine Color Yellow (YELLOW) 10/29/18 17:26 Urine Clarity Hazy (Clear) 10/29/18 17:26 Urine pH 7.0 (5.0-8.0) 10/29/18 17:26 Ur Specific [place] 1.010 (1.003-1.030) 10/29/18 17:26 Urine Protein Negative mg/dL (NEGATIVE) 10/29/18 17:26 Urine Glucose (UA) Normal mg/dL (Normal) 10/29/18 17:26 Urine Ketones Negative mg/dL (NEGATIVE) 10/29/18 17:26 Urine Blood Negative (NEGATIVE) 10/29/18 17:26 Urine Nitrate Negative (NEGATIVE) 10/29/18 17:26 Urine Bilirubin Negative (NEGATIVE) 10/29/18 17:26 Urine Urobilinogen Normal mg/dL (0.2-1.0) 10/29/18 17:26 Ur Leukocyte Esterase Neg [place]/uL (Negative) 10/29/18 17:26 Urine WBC (Auto) 2 /hpf (0-5) 10/29/18 17:26 Urine RBC (Auto) 1 /hpf (0-3) 10/29/18 17:26 Ur Squamous Epith Cells 2 /hpf (0-5) 10/29/18 17:26 Urine Bacteria Rare (<OCC) 10/29/18 17:26 Blood Type AB POSITIVE 10/29/18 17:25 Antibody Screen Negative 10/29/18 17:25 - Hospital Course Hospital Course: On admission: Patient is an 82-year-old male with past medical history of HTN, DM2, CAD, and myelodysplastic syndrome (dx 2.5yrs ago) with associated pancytopenia who presents to the ED as requested by PMD Dr. Moreau for anemia with reported hgb of 6. Patient reports he is being treated by Dr. Bridges for myelodysplastic syndrome. Patient is reporting some gait instability during today's exam he says for the past couple of days. Patient also reports some weakness for the past couple of days.Patient denies chest pain, SOB, palpitations, dizziness, headaches, n/v, diarrhea, leg swelling, abdominal pain, dysuria. Hospital course: 82 male w/ PMhx of HTN, DM2, CAD, and myelodysplastic syndrome (dx 2.5yrs ago) presents w/ acute anemia Acute anemia Likely 2/2 due to myelodysplastic syndrome - hgb 7.7s, WBCs 0.8, plts 21 on admission - baseline hgb 9s, wbcs 0.7s, plts 19s - transfused 1X PRBCs on 10/29-> hgb 8.0 following transfusion - Additional 1 unit PRBC ordered for 10/30/18 - f/u stool occult - f/u heme/onc consutl Dr. Bridges Leukopenia - F/u Blood cultures History of hypertension - BP currently 110's on admission - hold home medications cozaar 100 mg daily, isosrbide mononitrate 60 mg daily, amlodipine 5 mg PO daily History of hyperlipidemia - c/w home medication atorvastatin 10 mg daily History of diabetes - ISS - hypoglyemic protocol - accucheck achs History of BPH - home medication proscar 5 mg daily, oxybutynin XL 15 mg PO daily History of Insomnia - home med Restoril 15mg PO HS Ppx - DVT: VTE contraindicated 2/2 to thrombopenia - GI: not indicated - PT - Fall risk checks Dispo: Additional 1 unit PRBC ordered for 10/30/18 Plan discussed with Attending Dr. Moreau. Carlene Coon, PGY-1 Discharge instructions: Discharge Exam - Head Exam Head Exam: ATRAUMATIC, NORMOCEPHALIC - Additional Findings Additional findings: - Constitutional Appears: Non-toxic, No Acute Distress - Head Exam Head Exam: ATRAUMATIC, NORMOCEPHALIC - Eye Exam Eye Exam: EOMI, PERRL Additional comments: conjunctival pallor - ENT Exam ENT Exam: Mucous Membranes Moist - Neck Exam Neck Exam: Full ROM, Normal Inspection - Respiratory Exam Respiratory Exam: Clear to Ausculation Bilateral, NORMAL BREATHING PATTERN. absent: Rales, Rhonchi, Wheezes, Respiratory Distress - Cardiovascular Exam Cardiovascular Exam: REGULAR RHYTHM, +S1, +S2. absent: Murmur - GI/Abdominal Exam GI & Abdominal Exam: Soft, Normal Bowel Sounds. absent: Distended, Firm, Guarding, Rigid, Rebound - Extremities Exam Extremities Exam: Full ROM, Normal Capillary Refill, Normal Inspection. absent: Tenderness - Neurological Exam Neurological Exam: Alert, Awake, Oriented x3 Neuro motor strength exam: Left Upper Extremity: 5, Right Upper Extremity: 5, Left Lower Extremity: 5, Right Lower Extremity: 5 - Psychiatric Exam Psychiatric exam: Normal Affect, Normal Mood - Skin Skin Exam: Dry, Intact, Warm Additional comments: slight pallor Discharge Plan - Follow Up Plan Condition: STABLE Disposition: HOME/ ROUTINE Additional Instructions: Patient stable for discharge as per Dr. Moreau. Patient will not require any new medications. You have confirmed that you do not need any refills. Please continue your home medications as usual. Follow up with Dr. Moreau and Dr. Bridges within one week of discharge. Return to the Emergency Room for new or worsening symptoms.
[2018-10-30] MEDS ORDERED: Calcium Carbonate 500 mg Chewable Antacid Tab PO PRN (14:55)
--- NOTE | 2018-10-30 15:04 | CP.PCM.DIS ---
Provider - Provider Date of Admission: 10/29/18 17:51 Attending physician: Oniel Moreau Jr, MD Consults: 10/29/18 18:31 Hematology Oncology Consult Routine Comment: Consulting Provider: Marleni Bridges Consulting Physician: Marleni Bridges Reason for Consult: hx of mds Time Spent in preparation of Discharge (in minutes): 35 Diagnosis - Discharge Diagnosis (1) Pancytopenia Status: Acute (2) Myelodysplasia (myelodysplastic syndrome) Status: Chronic Hospital Course - Lab Results Lab Results: Most Recent Lab Values WBC 0.9 K/uL (4.8-10.8) L* 10/30/18 06:38 RBC 2.53 Mil/uL (4.40-5.90) L 10/30/18 06:38 Hgb 8.0 g/dL (12.0-18.0) L 10/30/18 06:38 Hct 22.9 % (35.0-51.0) L 10/30/18 06:38 MCV 90.5 fL (80.0-94.0) 10/30/18 06:38 MCH 31.7 pg (27.0-31.0) H 10/30/18 06:38 MCHC 35.0 g/dL (33.0-37.0) 10/30/18 06:38 RDW 15.2 % (11.5-14.5) H 10/30/18 06:38 Plt Count 17 K/uL (130-400) L* 10/30/18 06:38 MPV 9.5 fL (7.2-11.7) 10/30/18 06:38 Neut % (Auto) 30.0 % (50.0-75.0) L 10/30/18 06:38 Lymph % (Auto) 67.9 % (20.0-40.0) H 10/30/18 06:38 [place] % (Auto) 0.5 % (0.0-10.0) 10/30/18 06:38 Eos % (Auto) 0.9 % (0.0-4.0) 10/30/18 06:38 Baso % (Auto) 0.7 % (0.0-2.0) 10/30/18 06:38 Neut # (Auto) 0.3 K/uL (1.8-7.0) L 10/30/18 06:38 Lymph # (Auto) 0.6 K/uL (1.0-4.3) L 10/30/18 06:38 [place] # (Auto) 0.0 K/uL (0.0-0.8) 10/30/18 06:38 Eos # (Auto) 0.0 K/uL (0.0-0.7) 10/30/18 06:38 Baso # (Auto) 0.0 K/uL (0.0-0.2) 10/30/18 06:38 PT 14.4 SECONDS (9.7-12.2) H 10/29/18 17:19 INR 1.3 10/29/18 17:19 APTT 31.7 SECONDS (21-34) 10/29/18 17:19 Sodium 136 mmol/L (132-148) 10/30/18 06:38 Potassium 4.7 mmol/L (3.6-5.2) 10/30/18 06:38 Chloride 100 mmol/L (98-107) 10/30/18 06:38 Carbon Dioxide 26 mmol/L (22-30) 10/30/18 06:38 Anion Gap 15 (10-20) 10/30/18 06:38 BUN 30 mg/dL (9-20) H 10/30/18 06:38 Creatinine 1.2 mg/dL (0.8-1.5) 10/30/18 06:38 Est GFR ( Amer) > 60 10/30/18 06:38 Est GFR (Non-Af Amer) 58 10/30/18 06:38 POC Glucose (mg/dL) 145 mg/dL (65-110) H 10/30/18 11:14 Random Glucose 107 mg/dL (75-110) 10/30/18 06:38 Calcium 8.9 mg/dl (8.6-10.4) 10/30/18 06:38 Total Bilirubin 1.0 mg/dL (0.2-1.3) 10/30/18 06:38 AST 17 U/L (17-59) 10/30/18 06:38 ALT 13 U/L (21-72) L 10/30/18 06:38 Alkaline Phosphatase 59 U/L (38-126) 10/30/18 06:38 Troponin I < 0.0120 ng/mL (0.00-0.120) 10/29/18 17:19 Total Protein 8.0 g/dL (6.3-8.3) 10/30/18 06:38 Albumin 3.7 g/dL (3.5-5.0) 10/30/18 06:38 Globulin 4.3 gm/dL (2.2-3.9) H 10/30/18 06:38 Albumin/Globulin Ratio 0.8 (1.0-2.1) L 10/30/18 06:38 Urine Color Yellow (YELLOW) 10/29/18 17:26 Urine Clarity Hazy (Clear) 10/29/18 17:26 Urine pH 7.0 (5.0-8.0) 10/29/18 17:26 Ur Specific [place] 1.010 (1.003-1.030) 10/29/18 17:26 Urine Protein Negative mg/dL (NEGATIVE) 10/29/18 17:26 Urine Glucose (UA) Normal mg/dL (Normal) 10/29/18 17:26 Urine Ketones Negative mg/dL (NEGATIVE) 10/29/18 17:26 Urine Blood Negative (NEGATIVE) 10/29/18 17:26 Urine Nitrate Negative (NEGATIVE) 10/29/18 17:26 Urine Bilirubin Negative (NEGATIVE) 10/29/18 17:26 Urine Urobilinogen Normal mg/dL (0.2-1.0) 10/29/18 17:26 Ur Leukocyte Esterase Neg [place]/uL (Negative) 10/29/18 17:26 Urine WBC (Auto) 2 /hpf (0-5) 10/29/18 17:26 Urine RBC (Auto) 1 /hpf (0-3) 10/29/18 17:26 Ur Squamous Epith Cells 2 /hpf (0-5) 10/29/18 17:26 Urine Bacteria Rare (<OCC) 10/29/18 17:26 Blood Type AB POSITIVE 10/29/18 17:25 Antibody Screen Negative 10/29/18 17:25 - Hospital Course Hospital Course: On admission: Patient is an 82-year-old male with past medical history of HTN, DM2, CAD, and myelodysplastic syndrome (dx 2.5yrs ago) with associated pancytopenia who presents to the ED as requested by PMD Dr. Moreau for anemia with reported hgb of 6. Patient reports he is being treated by Dr. Bridges for myelodysplastic syndrome. Patient is reporting some gait instability during today's exam he says for the past couple of days. Patient also reports some weakness for the past couple of days.Patient denies chest pain, SOB, palpitations, dizziness, headaches, n/v, diarrhea, leg swelling, abdominal pain, dysuria. Hospital course: 82 male w/ PMhx of HTN, DM2, CAD, and myelodysplastic syndrome (dx 2.5yrs ago) admitted for acute anemia. Hgb was 7.7 (baseline is ~9) on admission. WBCs 0.8 and plts 21 on admission, which is baseline for patient due to MDS. Patient was transfused 2 units of PRBC with increase in Hgb to 9.1. Patient states he feels much better following transfusion and generalized weakness has resolved. As per Dr. Moreau, patient is stable for discharge with follow up in Dr. Moreau's office and with heme/onc, Dr. Bridges within one week of discharge. Please note, this is a summary of hospitalization, for full records see EMR. Discharge instructions: Patient stable for discharge as per Dr. Moreau. Patient will not require any new medications. You have confirmed that you do not need any refills. Please continue your home medications as usual. Follow up with Dr. Moreau and Dr. Bridges within one week of discharge. Return to the Emergency Room for new or worsening symptoms. Discharge Exam - Head Exam Head Exam: ATRAUMATIC, NORMOCEPHALIC - Additional Findings Additional findings: - Constitutional Appears: Non-toxic, No Acute Distress - Head Exam Head Exam: ATRAUMATIC, NORMOCEPHALIC - Eye Exam Eye Exam: EOMI, PERRL Additional comments: conjunctival pallor - ENT Exam ENT Exam: Mucous Membranes Moist - Neck Exam Neck Exam: Full ROM, Normal Inspection - Respiratory Exam Respiratory Exam: Clear to Ausculation Bilateral, NORMAL BREATHING PATTERN. absent: Rales, Rhonchi, Wheezes, Respiratory Distress - Cardiovascular Exam Cardiovascular Exam: REGULAR RHYTHM, +S1, +S2. absent: Murmur - GI/Abdominal Exam GI & Abdominal Exam: Soft, Normal Bowel Sounds. absent: Distended, Firm, Guarding, Rigid, Rebound - Extremities Exam Extremities Exam: Full ROM, Normal Capillary Refill, Normal Inspection. absent: Tenderness - Neurological Exam Neurological Exam: Alert, Awake, Oriented x3 Neuro motor strength exam: Left Upper Extremity: 5, Right Upper Extremity: 5, Left Lower Extremity: 5, Right Lower Extremity: 5 - Psychiatric Exam Psychiatric exam: Normal Affect, Normal Mood - Skin Skin Exam: Dry, Intact, Warm Additional comments: slight pallor Discharge Plan - Follow Up Plan Condition: STABLE Disposition: HOME/ ROUTINE Instructions: Myelodysplastic Syndromes (MDS) (DC) Additional Instructions: Patient stable for discharge as per Dr. Moreau. Patient will not require any new medications. You have confirmed that you do not need any refills. Please continue your home medications as usual. Follow up with Dr. Moreau and Dr. Bridges within one week of discharge. Return to the Emergency Room for new or worsening symptoms.
[2018-10-30 16:07] VITALS: BP 126/67; PULSE 73; TEMP 98.2; O2SAT 96
[2018-10-30 17:02] LABS: HEMOGLOBIN 9.1 g/dL (12.0-18.0); MEAN CELL VOLUME 88.8 fL (80.0-94.0); MEAN CORPUSCULAR HEMOGLOBIN 31.2 pg (27.0-31.0); MEAN CORPUSCULAR HGB CONC 35.1 g/dL (33.0-37.0); MEAN PLATELET VOLUME 10.5 fL (7.2-11.7); RBC 2.93 Mil/uL (4.40-5.90); RED CELL DISTRIBUTION WIDTH 15.2 % (11.5-14.5)
[2018-10-30 17:10] LABS: WHITE BLOOD COUNT 0.7 K/uL (4.8-10.8)
--- NOTE | 2018-10-31 13:44 | CARD ---
APPROVED REPORT Date of service: 10/29/2018 EKG Measurement Heart [id number] <Conclusion> Normal sinus rhythm Left axis deviation Right bundle branch block Abnormal ECG
== END 2018-10-30 18:39 | disposition home or self-care (01) ==
LOC: C.ER 16:29 → C.9E 17:51 → C.5S 20:05
PROVIDERS: ADMIT Internal Medicine; ATTEND Internal Medicine
DX: D61.818 Other pancytopenia (principal); D46.9 Myelodysplastic syndrome, unspecified; E78.5 Hyperlipidemia, unspecified; I10 Essential (primary) hypertension; I25.10 Atherosclerotic heart disease of native coronary artery without angina pectoris; N40.0 Benign prostatic hyperplasia without lower urinary tract symptoms; Z79.4 Long term (current) use of insulin; Z87.891 Personal history of nicotine dependence; Z91.81 History of falling; E10.9 Type 1 diabetes mellitus without complications
CPT/HCPCS: 36415; 36430; 71045; 80053; 81001; 82948; 84484; 85025; 85027; 85610; 85730; 86850; 86900; 86920; 87040; 97116; 97162; 99285; C9113; G0378; G8978; G8979; G8980; P9051

== ENCOUNTER 2018-11-15 13:08 | Observation (INO) | payer MEDICARE, OTHER ==
[2018-11-15 13:09] VITALS: BMI 29.8
[2018-11-15 14:18] LABS: EOS % 0.2 % (0.0-4.0); HEMOGLOBIN 7.1 g/dL (12.0-18.0); LYMPH # 0.4 K/uL (1.0-4.3); LYMPH % 75.2 % (20.0-40.0); MEAN CELL VOLUME 93.5 fL (80.0-94.0); MEAN CORPUSCULAR HEMOGLOBIN 31.7 pg (27.0-31.0); MEAN CORPUSCULAR HGB CONC 33.9 g/dL (33.0-37.0); MEAN PLATELET VOLUME 8.8 fL (7.2-11.7); MONO % 3.5 % (0.0-10.0); NEUT # 0.1 K/uL (1.8-7.0); NEUT % 21.1 % (50.0-75.0); RBC 2.22 Mil/uL (4.40-5.90); RED CELL DISTRIBUTION WIDTH 17.7 % (11.5-14.5)
[2018-11-15 14:29] LABS: INR 1.1; PARTIAL THROMBOPLASTIN TIME 30.4 SECONDS (21-34); PROTHROMBIN TIME 12.3 SECONDS (9.7-12.2)
[2018-11-15 14:30] LABS: WHITE BLOOD COUNT 0.6 K/uL (4.8-10.8)
[2018-11-15 14:49] LABS: ALB/GLOB RATIO 0.9 (1.0-2.1); ALBUMIN 3.5 g/dL (3.5-5.0); CALCIUM 8.8 mg/dl (8.6-10.4)
--- NOTE | 2018-11-15 15:52 | C.PDOC ---
History Of Present Illness 82 y/o male,w/PMhx of MDS and anemia, presents to the ER for evaluation of acute onset of chronic anemia. Patient states that he outpatient labwork which showed hemoglobin level 7 yesterday. Patient reports that referred him to the ER. He receives blood transfusions occasionally for his history of MDS. He was recently admitted in [facility] on 10/29/18-10/30/18. Denies having fever and chills. Time Seen by Provider: 11/15/18 13:53 Chief Complaint (Nursing): Abnormal Labs History Per: Patient History/Exam Limitations: no limitations Past Medical History Reviewed: Historical Data, Nursing Documentation, Vital Signs Vital Signs: Last Vital Signs Temp 98.3 F 11/15/18 13:24 Pulse 84 11/15/18 13:24 Resp 20 11/15/18 13:24 BP 109/55 L 11/15/18 13:24 Pulse Ox 99 11/15/18 13:24 Primary Care Provider: Oniel Abdi Jr. - Medical History PMH: Anemia, Arthritis, CAD, Diabetes, HTN Denies: Chronic Kidney Disease Surgical History: Appendectomy (1989), Coronary Stent (2010) - [employer] Procedures INSERT VAD RESERVOIR IN CHEST SUBCU/FASCIA, PERC (07/04/18) INSERTION OF INFUSION DEV INTO SUP VENA CAVA, PERC APPROACH (07/04/18) LEFT HEART CARDIAC CATH (04/16/13) LT HEART ANGIOCARDIOGRAM (04/16/13) TRANSFUSE NONAUT PLATELETS IN PERIPH VEIN, PERC (07/04/18) TRANSFUSE NONAUT RED BLOOD CELLS IN PERIPH VEIN, PERC (08/31/18) Family History: States: No Known Family Hx - Social History Hx Tobacco Use: No Hx Alcohol Use: No Hx Substance Use: No - Immunization History Hx Tetanus Toxoid Vaccination: No Hx Influenza Vaccination: Yes (2018) Hx Pneumococcal Vaccination: Yes (3 years ago) Review Of Systems Except As Marked, All Systems Reviewed And Found Negative. Constitutional: Negative for: Fever, Chills Cardiovascular: Negative for: Chest Pain Respiratory: Negative for: Shortness of Breath Gastrointestinal: Negative for: Nausea, Vomiting, Abdominal Pain Physical Exam - Physical Exam Appears: No Acute Distress, Other (elderly male) Skin: Warm, Dry, Pale Head: Atraumatic, Normacephalic Eye(s): bilateral: PERRL, EOMI, Conjunctiva Pale Nose: Normal Oral Mucosa: Moist Neck: Supple Chest: Symmetrical Cardiovascular: Rhythm Regular Respiratory: Normal Breath Sounds, No Rales, No Rhonchi, No Wheezing Gastrointestinal/Abdominal: Normal Exam, Soft, No Tenderness, No Guarding, No Rebound Neurological/Psych: Oriented x3, Normal Speech ED Course And Treatment - Laboratory Results Result Diagrams: 11/15/18 14:03 11/15/18 14:03 Lab Results: PT 12.3 SECONDS (9.7-12.2) H 11/15/18 14:03 INR 1.1 11/15/18 14:03 APTT 30.4 SECONDS (21-34) 11/15/18 14:03 Total Bilirubin 0.7 mg/dL (0.2-1.3) 11/15/18 14:03 AST 25 U/L (17-59) 11/15/18 14:03 ALT 18 U/L (21-72) L D 11/15/18 14:03 Alkaline Phosphatase 54 U/L (38-126) 11/15/18 14:03 Total Protein 7.4 g/dL (6.3-8.3) 11/15/18 14:03 Albumin 3.5 g/dL (3.5-5.0) 11/15/18 14:03 Globulin 3.9 gm/dL (2.2-3.9) 11/15/18 14:03 Albumin/Globulin Ratio 0.9 (1.0-2.1) L 11/15/18 14:03 ECG: Interpreted By [place] ECG Rhythm: Sinus Rhythm ECG Interpretation: Normal Rate From EC O2 Sat by Pulse Oximetry: 99 (RA) Pulse Ox Interpretation: Normal Reassessment Condition: Unchanged - Physician Consult Information Outcome Of Conversation: [id number]: d/w Dr. Abdi, and his Sandip, PMD, ok to Med/Surg Obs Medical Decision Making Medical Decision Making: acute on chronic anemia HGB 7 prob 2^ to MDS plan blood tx x [address] Bridges Heme Consult ? Neutropenia WBC 0.6 x 21% N= 1260 in intermediate range for neutropenic precautions No s/s of neutropenic fevers No empiric abx indicated at this time. Disposition Doctor Will See Patient In The: Hospital Counseled Patient/Family Regarding: Studies Performed, Diagnosis - Disposition Disposition: HOSPITALIZED Disposition Time: 15:58 Condition: GOOD - Clinical Impression Clinical Impression: Symptomatic anemia, Neutropenia - Scribe Statement The provider has reviewed the documentation as recorded by the Clementine Rios Provider Attestation: All medical record entries made by the Clementine were at my direction and personally dictated by me. I have reviewed the chart and agree that the record accurately reflects my personal performance of the history, physical exam, medical decision making, and the department course for this patient. I have also personally directed, reviewed, and agree with the discharge instructions and disposition.
--- NOTE | 2018-11-15 16:15 | CP.PCM.HP ---
History of Present Illness - History of Present Illness History of Present Illness: 82-year-old male with past medical history of HTN, DM2, CAD, and myelodysplastic syndrome (dx 2.5yrs ago) with associated pancytopenia who presents to the ED as requested by oncologist, Dr. Bridges if hemaglobin is less than 7. Patient denies chest pain, SOB, palpitations, dizziness, headaches, n/v, diarrhea, leg swelling, abdominal pain, dysuria. Past Medical History: Dr. Moreau, Heme/Onc: Dr. Bridges, Cardio: Dr. Simmons Past Medical History: HTN, DM2, CAD, myelodysplastic syndrome Past Surigcal History: stents x2 2012, appendectomy Medications: Jardiance 10 mg qd, amlodipine 5 mg qd, isosorbide mononitrate ER 60 mg qd, losartan potassium 100 mg qd, atorvastatin 20 mg qhs, oxybutinin ER 15 mg qhs, finasteride 5 mg qhs, Humulin 70/30 28 unit & 24 units, temazepam 15 mg qhs Allergies: NKDA Social History: denies alcohol/drug use, former smoker quit 27 years ago Present on Admission - Present on Admission Any Indicators Present on Admission: No Review of Systems - Constitutional Constitutional: absent: Chills, Fever - Cardiovascular Cardiovascular: absent: Chest Pain, Dyspnea, Lightheadedness, Palpitations - Respiratory Respiratory: absent: Cough, Dyspnea - Gastrointestinal Gastrointestinal: absent: Constipation, Diarrhea, Nausea, Vomiting - Genitourinary Genitourinary: absent: Dysuria - Neurological Neurological: absent: Dizziness, Headaches Past Patient History - Past Medical History & Family History Past Medical History?: Yes - Past Social History Smoking Status: Former Smoker - CARDIAC Hx Hypertension: Yes - PULMONARY Hx Respiratory Disorders: No - NEUROLOGICAL Hx Neurological Disorder: No - HEENT Hx HEENT Problems: No - RENAL Hx Chronic Kidney Disease: No - ENDOCRINE/METABOLIC Hx Diabetes Mellitus Type 1: Yes - HEMATOLOGICAL/ONCOLOGICAL Hx Anemia: Yes - INTEGUMENTARY Hx Dermatological Problems: No - MUSCULOSKELETAL/RHEUMATOLOGICAL Hx Arthritis: Yes - GASTROINTESTINAL Hx Gastrointestinal Disorders: No - GENITOURINARY/GYNECOLOGICAL Hx Genitourinary Disorders: No - PSYCHIATRIC Hx Substance Use: No - SURGICAL HISTORY Hx Appendectomy: Yes (1989) Hx Coronary Stent: Yes (2010) - ANESTHESIA Hx Anesthesia: Yes Hx Anesthesia Reactions: No Hx Malignant Hyperthermia: No Meds Allergies/Adverse Reactions: Allergies Allergy/AdvReac Type Severity Reaction Status Date / Time No Known Allergies Allergy Verified 11/15/18 13:25 Physical Exam - Constitutional Appears: No Acute Distress, Chronically Ill - Head Exam Additional comments: mass 3cm left occipital area- tenderness to palpation - Eye Exam Eye Exam: EOMI, Normal appearance, PERRL Pupil Exam: NORMAL ACCOMODATION - ENT Exam ENT Exam: Mucous Membranes Moist - Respiratory Exam Respiratory Exam: Clear to Auscultation Bilateral, NORMAL BREATHING PATTERN - Cardiovascular Exam Cardiovascular Exam: REGULAR RHYTHM, +S1, +S2 - GI/Abdominal Exam GI & Abdominal Exam: Normal Bowel Sounds, Soft. absent: Tenderness - Extremities Exam Extremities exam: Positive for: normal inspection - Neurological Exam Neurological exam: Alert, Oriented x3 - Psychiatric Exam Psychiatric exam: Normal Affect - Skin Skin Exam: Normal Color Results - Vital Signs Recent Vital Signs: Last Vital Signs Temp 98.3 F 11/15/18 13:24 Pulse 84 11/15/18 13:24 Resp 20 11/15/18 13:24 BP 109/55 L 11/15/18 13:24 Pulse Ox 99 11/15/18 15:58 - Labs Result Diagrams: 11/15/18 14:03 11/15/18 14:03 Labs: Laboratory Results - last 24 hr 11/15/18 11/15/18 11/15/18 14:03 14:03 14:03 WBC 0.6 L* RBC 2.22 L Hgb 7.1 L D Hct 20.8 L MCV 93.5 D MCH 31.7 H MCHC 33.9 RDW 17.7 H Plt Count 23 L* MPV 8.8 Neut % (Auto) 21.1 L Lymph % (Auto) 75.2 H [place] % (Auto) 3.5 Eos % (Auto) 0.2 Baso % (Auto) 0.0 Neut # (Auto) 0.1 L Lymph # (Auto) 0.4 L [place] # (Auto) 0.0 Eos # (Auto) 0.0 Baso # (Auto) 0.0 Total Counted Cancelled Neutrophils % (Manual) Cancelled Band Neutrophils % Cancelled Lymphocytes % (Manual) Cancelled Reactive Lymphs % Cancelled Monocytes % (Manual) Cancelled Eosinophils % (Manual) Cancelled Basophils % (Manual) Cancelled Metamyelocytes % Cancelled Myelocytes % Cancelled Promyelocytes % Cancelled Blast Cells % Cancelled Plasma Cell % (Manual) Cancelled Nucleated RBC % Cancelled Hypersegmented Polys Cancelled Smudge Cells Cancelled Toxic Granulation Cancelled Dohle Bodies Cancelled Luciano Rods Cancelled Platelet Estimate Cancelled Plt Clumps, EDTA Cancelled Large Platelets Cancelled Giant Platelets Cancelled RBC Morphology Cancelled Polychromasia Cancelled Hypochromasia (manual) Cancelled Poikilocytosis (manual Cancelled Basophilic Stippling Cancelled Anisocytosis (manual) Cancelled Microcytosis (manual) Cancelled Macrocytosis (manual) Cancelled Spherocytes Cancelled Sickle Cells Cancelled Target Cells Cancelled Tear Drop Cells Cancelled Ovalocytes Cancelled Stomatocytes Cancelled Helmet Cells Cancelled Del [place]id-[place] Bodies Cancelled [place] Cells Cancelled Acanthocytes (Spur) Cancelled Rouleaux Cancelled Schistocytes Cancelled PT 12.3 H INR 1.1 APTT 30.4 Sodium 138 Potassium 4.6 Chloride 103 Carbon Dioxide 28 Anion Gap 12 BUN 25 H Creatinine 1.6 H Est GFR ( Amer) 50 Est GFR (Non-Af Amer) 42 Random Glucose 192 H D Calcium 8.8 Total Bilirubin 0.7 AST 25 ALT 18 L D Alkaline Phosphatase 54 Total Protein 7.4 Albumin 3.5 Globulin 3.9 Albumin/Globulin Ratio 0.9 L Blood Type Antibody Screen 11/15/18 14:03 WBC RBC Hgb Hct MCV MCH MCHC RDW Plt Count MPV Neut % (Auto) Lymph % (Auto) [place] % (Auto) Eos % (Auto) Baso % (Auto) Neut # (Auto) Lymph # (Auto) [place] # (Auto) Eos # (Auto) Baso # (Auto) Total Counted Neutrophils % (Manual) Band Neutrophils % Lymphocytes % (Manual) Reactive Lymphs % Monocytes % (Manual) Eosinophils % (Manual) Basophils % (Manual) Metamyelocytes % Myelocytes % Promyelocytes % Blast Cells % Plasma Cell % (Manual) Nucleated RBC % Hypersegmented Polys Smudge Cells Toxic Granulation Dohle Bodies Luciano Rods Platelet Estimate Plt Clumps, EDTA Large Platelets Giant Platelets RBC Morphology Polychromasia Hypochromasia (manual) Poikilocytosis (manual Basophilic Stippling Anisocytosis (manual) Microcytosis (manual) Macrocytosis (manual) Spherocytes Sickle Cells Target Cells Tear Drop Cells Ovalocytes Stomatocytes Helmet Cells Del Cid-[place] Bodies [place] Cells Acanthocytes (Spur) Rouleaux Schistocytes PT INR APTT Sodium Potassium Chloride Carbon Dioxide Anion Gap BUN Creatinine Est GFR ( Amer) Est GFR (Non-Af Amer) Random Glucose Calcium Total Bilirubin AST ALT Alkaline Phosphatase Total Protein Albumin Globulin Albumin/Globulin Ratio Blood Type AB POSITIVE Antibody Screen Negative Assessment & Plan - Assessment and Plan (Free Text) Assessment: Acute anemia 2/2 due to myelodysplastic syndrome - hgb 7.1, WBCs 0.6, platelets 23 - baseline hgb 9, WBC 0.7, Platelets 19 - Transfuse 2X PRBCs - f/u CBC in the AM - Heme/onc Consult: Dr. Bridges --> help appreciated History of hypertension - BP currently 109/55 - hold home medications isosrbide mononitrate 60 mg daily, amlodipine 5 mg PO daily; Cozaar 100 mg daily - Continue to monitor History of hyperlipidemia - Continue home medication atorvastatin 10 mg daily History of diabetes - ISS - hypoglyemic protocol - accucheck achs History of BPH - Continue home medication Finasteride 5 mg daily, oxybutynin XL 15 mg PO daily Prophylaxis - DVT: VTE contraindicated 2/2 to thrombocytopenia - GI: not indicated - Fall risk checks Plan discussed with Dr. Moreau.
--- NOTE | 2018-11-15 16:36 | RAD ---
Date of service: 11/15/2018 HISTORY: adm COMPARISON: 10/29/2018. FINDINGS: Right-sided MediPort terminates in the SVC. LUNGS: The lungs are well inflated and clear. PLEURA: No pleural effusions or pneumothorax. CARDIOVASCULAR: The heart is normal in size. There are early aortic atherosclerotic calcifications present. OSSEOUS STRUCTURES: Within normal limits for the patient's age. VISUALIZED UPPER ABDOMEN: Normal. OTHER FINDINGS: None. IMPRESSION: No active pulmonary disease.
[2018-11-15] MEDS: (Novolin R) Insulin Human Regular 100 units/ml vial SC SCH ×2 (17:28→21:41)
[2018-11-15 18:26] VITALS: RESP 20
[2018-11-16 00:47] VITALS: BP 135/66; PULSE 70; TEMP 97.9
[2018-11-16 01:31] VITALS: O2SAT 96
[2018-11-16 07:29] LABS: EOS % 1.8 % (0.0-4.0); HEMOGLOBIN 8.9 g/dL (12.0-18.0); LYMPH # 0.4 K/uL (1.0-4.3); MEAN CELL VOLUME 92.3 fL (80.0-94.0); MEAN CORPUSCULAR HEMOGLOBIN 32.1 pg (27.0-31.0); MEAN CORPUSCULAR HGB CONC 34.8 g/dL (33.0-37.0); MEAN PLATELET VOLUME 8.5 fL (7.2-11.7); MONO % 3.6 % (0.0-10.0); NEUT % 9.6 % (50.0-75.0); NRBC % 3.1 % (0.0-2.0); RBC 2.78 Mil/uL (4.40-5.90); RED CELL DISTRIBUTION WIDTH 15.8 % (11.5-14.5)
[2018-11-16 07:32] LABS: ALB/GLOB RATIO 0.9 (1.0-2.1); ALBUMIN 3.3 g/dL (3.5-5.0); ALT/SGPT 19 U/L (21-72); AST/SGOT 26 U/L (17-59); BLOOD UREA NITROGEN 22 mg/dL (9-20); CALCIUM 8.8 mg/dl (8.6-10.4); GFR NON-AFRICAN AMERICAN 53
[2018-11-16 07:41] LABS: WHITE BLOOD COUNT 0.5 K/uL (4.8-10.8)
[2018-11-16] MEDS: (Novolin R) Insulin Human Regular 100 units/ml vial SC SCH (08:25)
[2018-11-16] MEDS ORDERED: Oxybutynin XL 15 mg Tab PO SCH (10:00)
--- NOTE | 2018-11-16 11:04 | CP.PCM.DIS ---
Provider - Provider Date of Admission: 11/15/18 15:50 Attending physician: Oniel Moreau Jr, MD Consults: 11/15/18 16:18 Hematology Oncology Consult Routine Comment: Consulting Provider: Marleni Bridges Consulting Physician: Marleni Bridges Reason for Consult: Acute anemia; myelodysplastic syndrome Time Spent in preparation of Discharge (in minutes): 35 Diagnosis - Discharge Diagnosis (1) Anemia Status: Acute Hospital Course - Lab Results Lab Results: Most Recent Lab Values WBC 0.5 K/uL (4.8-10.8) L* 11/16/18 06:50 RBC 2.78 Mil/uL (4.40-5.90) L 11/16/18 06:50 Hgb 8.9 g/dL (12.0-18.0) L 11/16/18 06:50 Hct 25.7 % (35.0-51.0) L 11/16/18 06:50 MCV 92.3 fL (80.0-94.0) 11/16/18 06:50 MCH 32.1 pg (27.0-31.0) H 11/16/18 06:50 MCHC 34.8 g/dL (33.0-37.0) 11/16/18 06:50 RDW 15.8 % (11.5-14.5) H 11/16/18 06:50 Plt Count 19 K/uL (130-400) L* 11/16/18 06:50 MPV 8.5 fL (7.2-11.7) 11/16/18 06:50 Neut % (Auto) 9.6 % (50.0-75.0) L 11/16/18 06:50 Lymph % (Auto) 85.0 % (20.0-40.0) H 11/16/18 06:50 [place] % (Auto) 3.6 % (0.0-10.0) 11/16/18 06:50 Eos % (Auto) 1.8 % (0.0-4.0) 11/16/18 06:50 Baso % (Auto) 0.0 % (0.0-2.0) 11/16/18 06:50 Neut # (Auto) 0.0 K/uL (1.8-7.0) L 11/16/18 06:50 Lymph # (Auto) 0.4 K/uL (1.0-4.3) L 11/16/18 06:50 [place] # (Auto) 0.0 K/uL (0.0-0.8) 11/16/18 06:50 Eos # (Auto) 0.0 K/uL (0.0-0.7) 11/16/18 06:50 Baso # (Auto) 0.0 K/uL (0.0-0.2) 11/16/18 06:50 Total Counted Cancelled 11/15/18 14:03 Neutrophils % (Manual) Cancelled 11/15/18 14:03 Band Neutrophils % Cancelled 11/15/18 14:03 Lymphocytes % (Manual) Cancelled 11/15/18 14:03 Reactive Lymphs % Cancelled 11/15/18 14:03 Monocytes % (Manual) Cancelled 11/15/18 14:03 Eosinophils % (Manual) Cancelled 11/15/18 14:03 Basophils % (Manual) Cancelled 11/15/18 14:03 Metamyelocytes % Cancelled 11/15/18 14:03 Myelocytes % Cancelled 11/15/18 14:03 Promyelocytes % Cancelled 11/15/18 14:03 Blast Cells % Cancelled 11/15/18 14:03 Plasma Cell % (Manual) Cancelled 11/15/18 14:03 Nucleated RBC % Cancelled 11/15/18 14:03 Hypersegmented Polys Cancelled 11/15/18 14:03 Smudge Cells Cancelled 11/15/18 14:03 Toxic Granulation Cancelled 11/15/18 14:03 Dohle Bodies Cancelled 11/15/18 14:03 Luciano Rods Cancelled 11/15/18 14:03 Platelet Estimate Cancelled 11/15/18 14:03 Plt Clumps, EDTA Cancelled 11/15/18 14:03 Large Platelets Cancelled 11/15/18 14:03 Giant Platelets Cancelled 11/15/18 14:03 RBC Morphology Cancelled 11/15/18 14:03 Polychromasia Cancelled 11/15/18 14:03 Hypochromasia (manual) Cancelled 11/15/18 14:03 Poikilocytosis (manual Cancelled 11/15/18 14:03 Basophilic Stippling Cancelled 11/15/18 14:03 Anisocytosis (manual) Cancelled 11/15/18 14:03 Microcytosis (manual) Cancelled 11/15/18 14:03 Macrocytosis (manual) Cancelled 11/15/18 14:03 Spherocytes Cancelled 11/15/18 14:03 Sickle Cells Cancelled 11/15/18 14:03 Target Cells Cancelled 11/15/18 14:03 Tear Drop Cells Cancelled 11/15/18 14:03 Ovalocytes Cancelled 11/15/18 14:03 Stomatocytes Cancelled 11/15/18 14:03 Helmet Cells Cancelled 11/15/18 14:03 Del Cid-[place] Bodies Cancelled 11/15/18 14:03 [place] Cells Cancelled 11/15/18 14:03 Acanthocytes (Spur) Cancelled 11/15/18 14:03 Rouleaux Cancelled 11/15/18 14:03 Schistocytes Cancelled 11/15/18 14:03 PT 12.3 SECONDS (9.7-12.2) H 11/15/18 14:03 INR 1.1 11/15/18 14:03 APTT 30.4 SECONDS (21-34) 11/15/18 14:03 Sodium 137 mmol/L (132-148) 11/16/18 06:50 Potassium 4.5 mmol/L (3.6-5.2) 11/16/18 06:50 Chloride 104 mmol/L (98-107) 11/16/18 06:50 Carbon Dioxide 26 mmol/L (22-30) 11/16/18 06:50 Anion Gap 12 (10-20) 11/16/18 06:50 BUN 22 mg/dL (9-20) H 11/16/18 06:50 Creatinine 1.3 mg/dL (0.8-1.5) 11/16/18 06:50 Est GFR ( Amer) > 60 11/16/18 06:50 Est GFR (Non-Af Amer) 53 11/16/18 06:50 POC Glucose (mg/dL) 161 mg/dL (65-110) H 11/16/18 05:59 Random Glucose 148 mg/dL (75-110) H D 11/16/18 06:50 Calcium 8.8 mg/dl (8.6-10.4) 11/16/18 06:50 Total Bilirubin 0.7 mg/dL (0.2-1.3) 11/16/18 06:50 AST 26 U/L (17-59) 11/16/18 06:50 ALT 19 U/L (21-72) L 11/16/18 06:50 Alkaline Phosphatase 48 U/L (38-126) 11/16/18 06:50 Total Protein 7.2 g/dL (6.3-8.3) 11/16/18 06:50 Albumin 3.3 g/dL (3.5-5.0) L 11/16/18 06:50 Globulin 3.9 gm/dL (2.2-3.9) 11/16/18 06:50 Albumin/Globulin Ratio 0.9 (1.0-2.1) L 11/16/18 06:50 Blood Type AB POSITIVE 11/15/18 14:03 Antibody Screen Negative 11/15/18 14:03 - Hospital Course Hospital Course: On admission: 82-year-old male with past medical history of HTN, DM2, CAD, and myelodysplastic syndrome (dx 2.5yrs ago) with associated pancytopenia who presents to the ED as requested by oncologist, Dr. Bridges if hemaglobin is less than 7. Patient denies chest pain, SOB, palpitations, dizziness, headaches, n/v, diarrhea, leg swelling, abdominal pain, dysuria. Hospital course: Patient sent by Dr. Bridges for Hgb of 7.1. Patient was transfused 2 units of PRBC with improvement of Hgb to 8.9. On discharge, patient denies any symptoms. Discharge instructions: Patient is stable for discharge as per Dr. Moreau. You must follow up with Dr. Bridges today and with Dr. Moreau within one week of discharge. You will receive a script for Lancets today. You have confirmed that you have enough of your medication at home and do not need refills. Return to the emergency room for new or worsening symptoms. Discharge Exam - Head Exam Head Exam: ATRAUMATIC, NORMOCEPHALIC - Eye Exam Eye Exam: EOMI, Normal appearance Additional comments: conjunctival pallor - Respiratory Exam Respiratory Exam: Clear to PA & Lateral, NORMAL BREATHING PATTERN. absent: Rales, Rhonchi, Wheezes - Cardiovascular Exam Cardiovascular Exam: REGULAR RHYTHM, +S1, +S2 - GI/Abdominal Exam GI & Abdominal Exam: Normal Bowel Sounds, Soft. absent: Tenderness - Extremities Exam Extremities exam: full ROM - Neurological Exam Neurological exam: Alert, CN II-XII Intact, Oriented x3 - Psychiatric Exam Psychiatric exam: Normal Affect, Normal Mood - Skin Skin Exam: Dry, Intact, Warm Discharge Plan - Follow Up Plan Condition: GOOD Disposition: HOME/ ROUTINE Instructions: Type 2 Diabetes, Neutropenia (DC) Additional Instructions: Patient is stable for discharge as per Dr. Moreau. You must follow up with Dr. Bridges today and with Dr. Moreau within one week of discharge. You will receive a script for Lancets today. You have confirmed that you have e nough of your medication at home and do not need refills. Return to the emergency room for new or worsening symptoms. Referrals: Oniel Moreau Jr., MD [Medical Doctor] - Marleni Bridges MD [Staff Provider] -
--- NOTE | 2018-11-16 14:02 | CARD ---
APPROVED REPORT Date of service: 11/15/2018 EKG Measurement Heart [id number] MD [id number] <Conclusion> Normal sinus rhythm Right bundle branch block Abnormal ECG
== END 2018-11-16 12:43 | disposition home or self-care (01) ==
LOC: C.ER 13:08 → C.9E 15:50 → C.5S 17:46
PROVIDERS: ADMIT Internal Medicine; ATTEND Internal Medicine
DX: D46.9 Myelodysplastic syndrome, unspecified (principal); D63.8 Anemia in other chronic diseases classified elsewhere; I10 Essential (primary) hypertension; E78.5 Hyperlipidemia, unspecified; I25.10 Atherosclerotic heart disease of native coronary artery without angina pectoris; E11.9 Type 2 diabetes mellitus without complications; D61.818 Other pancytopenia; Z95.5 Presence of coronary angioplasty implant and graft; Z87.891 Personal history of nicotine dependence; Z79.84 Long term (current) use of oral hypoglycemic drugs; M19.90 Unspecified osteoarthritis, unspecified site
CPT/HCPCS: 36415; 36430; 71045; 80053; 82948; 85025; 85610; 85730; 86850; 86900; 86920; 93005; 99284; G0378; P9051